=== PATIENT | male | born 1945 | race Caucasian/White ===

== ENCOUNTER → 2019-07-15 09:30 | Outpatient (CLI) | payer MEDICARE, SELFPAY ==
[2019-07-15 10:36] LABS: Add Manual Diff / Slide Review NO; Basophils Absolute Auto 0 /uL (0-100); Basophils Percent Auto 0.5 % (0-2); Eosinophils Absolute Auto 200 /uL (0-450); Eosinophils Percent Auto 3.6 % (2-4); Hematocrit 41.9 % (41-53); Hemoglobin 14.6 g/dL (13.5-17.5); Lymphocytes Absolute Auto 1300 /uL (1100-4500); Lymphocytes Percent Auto 19.4 % (25-40); Mean Corpuscular HGB Conc 34.8 % (30-36); Mean Corpuscular Hemoglobin 31.9 PG (26-34); Mean Corpuscular Volume 91.6 fL (80-100); Monocytes Absolute Auto 800 /uL (0-900); Monocytes Percent Auto 11.5 % (3-14); Neutrophils Absolute Auto 4300 /uL (1500-7000); Platelet Count 164 X10^3/uL (150-400); Red Blood Cell Count 4.58 X10^6/uL (4.5-5.9); Red Cell Distribution Width 13.3 % (11.6-14.8); White Blood Cell Count 6.6 X10^3/uL (4.5-11.0)
[2019-07-15 11:02] LABS: BUN Creatinine Ratio 22.5 (6-22); Blood Urea Nitrogen 18 mg/dL (9-20); Calcium 9.8 mg/dL (8.4-10.2); Carbon Dioxide 29 mmol/L (22-32); Chloride 100 mmol/L (98-107); Estimated Glomerular Filt Rate > 60.0 mL/min (>60); Glucose 159 mg/dL (80-110); HEMOLYSIS < 15 (0-50); Potassium 4.7 mmol/L (3.4-5.1); Sodium 141 mmol/L (137-145)
== END ==
PROVIDERS: Orthopaedic Surgery Orthopaedic Surgery of the Spine; Family Provider Family Medicine; PCP Family Medicine; Referring Provider Physical Medicine & Rehabilitation Pain Medicine; Visit Provider Physical Medicine & Rehabilitation Pain Medicine
DX: Z01.818 Encounter for other preprocedural examination (principal); Z01.812 Encounter for preprocedural laboratory examination
CPT/HCPCS: 36415; 80048; 85025; 93005

== ENCOUNTER → 2019-11-09 12:17 | Outpatient (CLI) | payer MEDICARE, SELFPAY ==
[2019-11-09 13:08] LABS: Add Manual Diff / Slide Review NO; Basophils Absolute Auto 0 /uL (0-100); Basophils Percent Auto 0.4 % (0-2); Eosinophils Absolute Auto 200 /uL (0-450); Eosinophils Percent Auto 3.3 % (2-4); Hematocrit 42.6 % (41-53); Hemoglobin 14.7 g/dL (13.5-17.5); Lymphocytes Absolute Auto 1300 /uL (1100-4500); Lymphocytes Percent Auto 19.6 % (25-40); Mean Corpuscular HGB Conc 34.6 % (30-36); Mean Corpuscular Volume 92.4 fL (80-100); Monocytes Absolute Auto 800 /uL (0-900); Monocytes Percent Auto 11.8 % (3-14); Neutrophils Absolute Auto 4400 /uL (1500-7000); Neutrophils Percent Auto 64.9 % (50-75); Platelet Count 154 X10^3/uL (150-400); Red Blood Cell Count 4.61 X10^6/uL (4.5-5.9); Red Cell Distribution Width 13.3 % (11.6-14.8); White Blood Cell Count 6.8 X10^3/uL (4.5-11.0)
[2019-11-09 13:45] LABS: Blood Urea Nitrogen 17 mg/dL (9-20); Calcium 9.6 mg/dL (8.4-10.2); Carbon Dioxide 27 mmol/L (22-32); Chloride 100 mmol/L (98-107); Estimated Glomerular Filt Rate > 60.0 mL/min (>60); Glucose 125 mg/dL (80-110); HEMOLYSIS < 15 (0-50); Potassium 4.1 mmol/L (3.4-5.1); Sodium 138 mmol/L (137-145)
== END ==
PROVIDERS: Family Provider Family Medicine; PCP Internal Medicine; Referring Provider Orthopaedic Surgery Orthopaedic Surgery of the Spine; Visit Provider Orthopaedic Surgery Orthopaedic Surgery of the Spine
DX: Z01.812 Encounter for preprocedural laboratory examination (principal)
CPT/HCPCS: 36415; 80048; 85025; 93005

== ENCOUNTER → 2019-11-19 09:31 | Outpatient (CLI) | payer MEDICARE, SELFPAY ==
[2019-11-20 10:25] LABS: COVID19 Sendout Not Detected (Not Detect)
== END ==
PROVIDERS: Family Provider Family Medicine; PCP Internal Medicine; Visit Provider Physician Assistant
DX: Z11.59 Encounter for screening for other viral diseases (principal)
CPT/HCPCS: 87635

== ENCOUNTER 2019-11-21 14:25 | Day surgery (SDC) | payer MEDICARE, SELFPAY ==
[2019-11-16 09:57] VITALS: BMI 38.2
[2019-11-21] VITALS (8 sets, daily range): BP systolic 139–168; BP diastolic 63–75; PULSE 68–86; RESP 8–20; TEMP 36–36.2; O2SAT 88–98; BMI 38.9
--- NOTE | 2019-11-21 | DI.RAD.S_ITS ---
PROCEDURE: XR LUMBAR SPINE 1V INDICATIONS: L3-4 LAMINECTOMY, L2-3 HEMILAMINECTOMY TECHNIQUE: Single lateral intraoperative spot of the lumbar spine were acquired. COMPARISON: None. FINDINGS: Localizer device projects over the mid l lumbar spine IMPRESSION: Mid lumbar spine localization. Dictated by: Christine Davis M.D. on 11/21/2019 at 17:23 Approved by: Christine Davis M.D. on 11/21/2019 at 17:24
--- NOTE | 2019-11-21 14:57 | PM.PREOP ---
Pre-operative Note COVID-19 COVID-19 status: Negative Result date/Date tested (Pos, Neg/Pending): 11/19/19 Interval Note History & Physical reviewed/Exam performed by Physician: Yes Changes to H&P: No
[2019-11-21] MEDS: LACTATED RINGERS 1,000 ML 42 ML IV (14:58)
[2019-11-21] MEDS: CEFAZOLIN 2 GM/100 ML FROZ.PIGGY IV (15:29)
--- NOTE | 2019-11-21 15:59 | SUR.OPER ---
Prone on spine table, head in foam head support, padded chest and pelvic supports, gel pad at knees, lower legs supported by pillows; nipples, genitalia and toes free of pressure, arms secured on foam padded arm boards at <90 degrees abduction. Tape over blanket at thigh secured to table.
[2019-11-21] MEDS: BUPIVACAINE 0.25% W/ EPI 30 ML VIAL INJ (16:07)
[2019-11-21] MEDS: methylPREDNISolone acet DEPO 40 MG/ML VIAL IM (16:22)
--- NOTE | 2019-11-21 16:32 | PM.OP.1 ---
Operative Date/Time/Diagnoses Date of procedure: 11/21/19 Time of procedure: 15:33 Pre-op diagnosis: 1. L2-3, L3-4 spinal stenosis 2. Lumbar epidural lipomatosis Post-op diagnosis: same Procedure & Clinicians Procedure: 1. L3-4 laminectomy with bilateral partial facectomies 2. L2-3 right hemilaminectomy 3. Utilization of microsurgical technique and operating microscope Same procedure as scheduled: Yes
--- NOTE | 2019-11-21 16:37 | P.OP_ITS ---
Procedure & Clinicians Procedure: 1. L2-3 laminectomy with bilateral partial facectomies 2. L3-4 right hemilaminectomy 3. Utitilization of microsurgical technique and operating microscope Same procedure as scheduled: Yes Indications: Patient has been having chronic back pain and worsening lumbar radiculopathy. Patient failed multiple conservative management with worsening pain weakness and numbness in her lower extremity. Patient has been having difficulty performing activity of daily living. After discussing risks benefits of treatment options, patient elected proceed with surgery. Surgeon: Sapna Shrestha [employer] Sales Associate: Kayla Stephenson Click Yes if Unassisted: No Anesthesia Type: General Operative Notes Closure Type: primary Specimen(s): none sent Estimated Blood Loss (mL): 10 Blood products transfused: none Procedure in detail: Patient was seen in the preoperative area. Risks and benefits of the surgery was discussed with the patient. Informed consent was obtained from the patient and placed in the chart. Surgical site was marked. Patient was taken to the operative room. General anesthesia was administered. Prophylactic antibiotic was given to the patient less than 30 min before the incision was made. Patient was placed into a prone position on the Braulio table. Patient's back was then prepped and draped in the sterile fashion. Time- out was performed at this time. Using AP and lateral C-arm imaging the interval between L2 and L4 was identified and marked on patient's back. A 1 inch incision 1 in from midline was made on the right side. The fascia was incised in line with skin incision. Globus MARS retractors was placed inside the incision and docked onto the L3 lamina. Using microsurgical technique and operating microscope, a L3-4 laminectomy was performed using a Kerrison rongeur. Liagamentum flavum was resected at the site of the laminotomy. Either side of the dura was exposed. Bilateral partial facetcomies was performed to further decompress the lateral recess. After the laminectomy was completed, the area medial lateral superior and inferior to the area of the laminectomy was inspected and explored using a micro curette. No other impinging structure was identified. The mars retractor was targeted at this time over the L2 lamina. A right-sided hemilaminectomy was performed using a Kerrison rongeur and a power drill. There was significant amount of epidermal it lipomatosis at both the L2-3 and L3-4 level. The lipomatosis was removed using a combination of Kerrison rongeur and pituitary to further decompress the epidural space. Both L2-3 and L3-4 level was fully decompressed after the laminectomy and hemilaminectomy was completed. The wound was then irrigated with sterile normal saline. 40 mg Depo-Medrol was placed into the epidural space. The deep fascia was closed with 1-0 Vicryl. The subcutaneous tissue was closed with 2-0 Vicryl. The skin was closed with skin jose. Patient tolerated the procedure well. There were no complications. Patient was transferred recovery room in stable condition. Complications: none Post-operative Condition: stable Disposition: same day surgery Plan for aftercare: Discharge to home
--- NOTE | 2019-11-21 17:22 | SUR.PHASEI ---
Report given to Vanda
== END 2019-11-21 17:55 | disposition home or self-care (01) ==
PROVIDERS: Family Provider Family Medicine; PCP Internal Medicine; Referring Provider Orthopaedic Surgery Orthopaedic Surgery of the Spine; Visit Provider Orthopaedic Surgery Orthopaedic Surgery of the Spine
PROC: (CPT 63047; principal; 2019-11-21 15:45)
DX: M48.061 Spinal stenosis, lumbar region without neurogenic claudication (principal); D17.79 Benign lipomatous neoplasm of other sites; M54.16 Radiculopathy, lumbar region; E66.9 Obesity, unspecified; E11.9 Type 2 diabetes mellitus without complications; Z79.4 Long term (current) use of insulin
CPT/HCPCS: 63047; 63030; 72020; 76000; J0330; J0690; J1030; J2405; J2704; J3010

== ENCOUNTER → 2020-11-05 13:09 | Outpatient (CLI) | payer MEDICARE, SELFPAY ==
[2020-11-05 14:49] LABS: COVID19 -Nasal RAPID Negative (Negative)
[2020-11-05 14:58] LABS: Add Manual Diff / Slide Review NO; Basophils Absolute Auto 0 /uL (0-100); Basophils Percent Auto 0.4 % (0-2); Eosinophils Absolute Auto 200 /uL (0-450); Eosinophils Percent Auto 2.7 % (2-4); Hematocrit 41.5 % (41-53); Hemoglobin 13.9 g/dL (13.5-17.5); Lymphocytes Absolute Auto 1600 /uL (1100-4500); Lymphocytes Percent Auto 20.5 % (25-40); Mean Corpuscular HGB Conc 33.6 % (30-36); Mean Corpuscular Hemoglobin 30.7 PG (26-34); Mean Corpuscular Volume 91.6 fL (80-100); Monocytes Absolute Auto 800 /uL (0-900); Monocytes Percent Auto 10.5 % (3-14); Neutrophils Absolute Auto 5300 /uL (1500-7000); Neutrophils Percent Auto 65.9 % (50-75); Platelet Count 182 X10^3/uL (150-400); Red Blood Cell Count 4.53 X10^6/uL (4.5-5.9); Red Cell Distribution Width 13.2 % (11.6-14.8)
[2020-11-05 15:26] LABS: Alanine Aminotransferase 49 IU/L (<50); Albumin 4.4 g/dL (3.5-5.0); Albumin Globulin Ratio 1.3 (1.0-2.8); Alkaline Phosphatase 77 U/L (38-126); Aspartate Aminotransferase 38 IU/L (17-59); BUN Creatinine Ratio 23.1 (6-22); Bilirubin Total 1.5 mg/dL (0.2-1.3); Blood Urea Nitrogen 18 mg/dL (9-20); Calcium 9.7 mg/dL (8.4-10.2); Carbon Dioxide 28 mmol/L (22-32); Chloride 101 mmol/L (98-107); Cholesterol 102 mg/dL (140-199); Estimated Glomerular Filt Rate > 60.0 mL/min (>60); Globulin 3.3 g/dL (1.7-4.1); Glucose 99 mg/dL (80-110); HDL Cholesterol 37 mg/dL (40-60); HEMOLYSIS < 15 (0-50); LDL Cholesterol Calculated 39 mg/dL (<100); Potassium 3.8 mmol/L (3.4-5.1); Sodium 141 mmol/L (137-145); Total Protein 7.7 g/dL (6.3-8.2); Triglycerides 131 mg/dL (35-150)
[2020-11-05 16:37] LABS: Creatinine Urine Random 28.1 mg/dL
[2020-11-05 17:01] LABS: Microalbumin Urine Random < 0.6 mg/dL (0-1.6)
== END ==
PROVIDERS: Family Provider Family Medicine; PCP Internal Medicine; Referring Provider Internal Medicine; Visit Provider Internal Medicine
DX: E11.9 Type 2 diabetes mellitus without complications (principal); E78.2 Mixed hyperlipidemia; I10 Essential (primary) hypertension; K21.9 Gastro-esophageal reflux disease without esophagitis; N40.1 Benign prostatic hyperplasia with lower urinary tract symptoms
CPT/HCPCS: 36415; 80053; 80061; 82043; 82570; 83036; 85025; 87635; C9803

== ENCOUNTER → 2020-11-05 14:22 | Outpatient (CLI) | payer MEDICARE, SELFPAY ==
--- NOTE | 2020-11-09 13:12 | PM.PFT.1 ---
Pulmonary Function Test Referral & Results Date Patient Seen: 11/05/20 Requesting provider: Jack Grant Indication: Shortness of breath Results: The spirometry demonstrates an FVC of 4.48 L which is 114% of predicted. The FEV1 was measured at 3.61 L which is 128% of predicted. The FEV1/FVC ratio was 81 which is 110% of predicted. Lung volumes show an SVC of 4.57 L which is 100 a % of predicted. The diffusing capacity was measured at 25.44 which is 85% of predicted. No hemoglobin value was provided, so no correction for potential anemia could be made, if appropriate. The maximum voluntary ventilation was normal Interpretation: This study demonstrates normal pulmonary function. Diffusing capacity maybe slightly diminished unless patient is anemic as above. This might well also be normal Clinical correlation suggested
== END ==
PROVIDERS: Family Provider Family Medicine; PCP Internal Medicine; Referring Provider Internal Medicine; Visit Provider Internal Medicine
DX: R06.02 Shortness of breath (principal); Z87.891 Personal history of nicotine dependence; Z20.822 Contact with and (suspected) exposure to COVID-19; E11.9 Type 2 diabetes mellitus without complications; E78.2 Mixed hyperlipidemia; K21.9 Gastro-esophageal reflux disease without esophagitis; N40.1 Benign prostatic hyperplasia with lower urinary tract symptoms
CPT/HCPCS: 36415; 80053; 80061; 82043; 82570; 83036; 85025; 87635; 94010; 94726; 94729; C9803

== ENCOUNTER 2021-04-03 18:08 | Observation (INO) | payer MEDICARE, SELFPAY ==
[2021-04-03] VITALS (11 sets, daily range): BP systolic 126–169; BP diastolic 61–77; PULSE 80–90; RESP 18; TEMP 36.2; O2SAT 93–97; BMI 38.9
--- NOTE | 2021-04-03 18:41 | DI.CT.S_ITS ---
PROCEDURE: CT HEAD/BRAIN WO CON INDICATIONS: change in speech, now resolved. TECHNIQUE: Noncontrast 4.5 mm thick angled axial sections acquired from the foramen magnum to the vertex, with coronal and sagittal reformats. For radiation dose reduction, the following was used: automated exposure control, adjustment of mA and/or kV according to patient size. COMPARISON: None. FINDINGS: Image quality: Excellent. CSF spaces: Basal cisterns are patent. No extra-axial fluid collections. The ventricles are symmetric in size and shape. Brain: No intracranial bleeds or masses. There is cerebral volume loss for age, with resultant ventricular and sulcal prominence. There are periventricular and deep white matter chronic small vessel ischemic changes. There is intracranial internal carotid artery atherosclerosis. Skull and face: Calvarium and visualized facial bones appear intact, without suspicious lesions. Sinuses: Visualized sinuses and mastoids are clear. IMPRESSION: Atrophy and chronic ischemic change without intracranial hemorrhage or mass effect. Approved by: Niles Real M.D. on 04/03/2021 at 18:17
--- NOTE | 2021-04-03 18:53 | ED.FEVER ---
HPI - Fever General Chief Complaint: Fever Stated Complaint: fever Time Seen by Provider: 04/03/21 18:36 Source: family Mode of arrival: Wheelchair Limitations: no limitations History of Present Illness HPI Narrative: 75-year-old male former smoker with history of hypertension, hyperlipidemia and diabetes presents with his and the chief complaint of some difficulty with word finding this afternoon. It lasted 1-2 hours and resolved prior to his arrival. Additionally he has felt a bit weak from much of the day and this morning at about 1:00 a.m. he woke up to urinate and his legs gave out from underneath him, he was on the ground and too weak to get up for nearly an hour before family can get him back in the bed. He denies any obvious extremity weakness, confusion, trouble with speech. He has had mild subjective fevers at home off and on for the past few days since his COVID booster. He denies any chest pain or shortness of breath. He denies nausea, vomiting or diarrhea. He denies any recent trauma. He has no abdominal pain or urinary complaints Related Data Home Medications Medication Instructions Recorded Confirmed alfuzosin 10 mg tablet,extended 10 mg PO DAILY 11/16/19 04/03/21 release 24 hr aspirin 81 mg tablet,delayed 81 mg PO DAILY 11/16/19 04/03/21 release atorvastatin 20 mg tablet 20 mg PO BEDTIME 11/16/19 04/03/21 glimepiride 1 mg tablet 1 mg PO QAM 11/16/19 04/03/21 irbesartan 300 mg tablet 300 mg PO QAM 11/16/19 04/03/21 metoprolol succinate 50 mg 50 mg PO QAM 11/16/19 04/03/21 tablet,extended release 24 hr naproxen 500 mg tablet 1,000 mg PO DAILY PRN 11/16/19 04/03/21 omeprazole 40 mg capsule,delayed 40 mg PO QAM 11/16/19 04/03/21 release vit C 250 mg-vit E 90 mg-zinc 40 1 tab PO BID 11/16/19 04/03/21 mg-copper 1 ms-gvpsdi-vkjgfe capsule (PreserVision AREDS-2) cholecalciferol (vitamin D3) 25 25 mcg PO DAILY 11/21/19 04/03/21 mcg (1,000 unit) chewable tablet (Vitamin D3) glucosamine sulfate 2KCl 500 1 tab PO BID 11/21/19 04/03/21 mg-msm 166.6 mg-chondroitin 400 mg tablet omega 4-htt-zgu-fish oil 1,000 mg 1 cap PO BID 11/21/19 04/03/21 (120 mg-180 mg) capsule (Fish Oil) vitamin B12 500 mcg-folic acid 400 1 tab PO DAILY 11/21/19 04/03/21 mcg tablet hydrochlorothiazide 12.5 mg tablet 12.5 mg PO DAILY tab 10/23/20 04/03/21 metformin 1,000 mg tablet 1,000 mg PO BID tab 10/23/20 04/03/21 tolterodine 4 mg capsule,extended 4 mg PO DAILY cap 10/23/20 04/03/21 release 24 hr Allergies Allergy/AdvReac Type Severity Reaction Status Date / Time kiwi [KIWI] Allergy Mild RASH Verified 02/07/21 11:12 strawberry [STRAWBERRY] Allergy Mild RASH Verified 02/07/21 11:12 travis AdvReac Intermediate Lump in Verified 02/07/21 11:12 my throat, sneezing Review of Systems Review of Systems Narrative: GENERAL: See HP HEENT: Denies sinus pain, ear pain, sore throat, difficulty swallowing, dizziness. RESPIRATORY: Denies dyspnea, cough, wheezing, hemoptysis, sputum. CARDIOVASCULAR: Denies chest pain, palpitations, orthopnea, edema, GASTROINTESTINAL: Denies nausea, vomiting, abdominal pain, diarrhea, constipation, melena. : Denies dysuria, frequency, incontinence, hematuria, urinary retention. MUSCULOSKELETAL: denies weakness, joint pain, or bony pain SKIN: Denies rash, skin lesions, or other NEUROLOGIC: See HP PSYCHIATRIC: No concerning psychosocial issues. 12 point review of systems is negative except for those stated above Patient History Medical History Arthritis Benign non-nodular prostatic hyperplasia with lower urinary tract symptoms (05/04/15) Bladder cancer (2007) Erectile dysfunction (05/04/15) Essential hypertension (05/04/15) GERD (gastroesophageal reflux disease) History of malignant neoplasm of bladder (05/04/15) Mixed hyperlipidemia (05/04/15) Post-traumatic osteoarthritis of left ankle (05/04/15) RBBB (right bundle branch block) Sciatica Type 2 diabetes mellitus without complication (05/04/15) Surgical History History of arthroplasty of left shoulder (~2017) History of carpal tunnel repair History of cataract removal with insertion of prosthetic lens History of knee replacement Status post rotator cuff repair Family History Father Diabetes mellitus Hypertension Heart disease Mother Hypertension Social History household members: spouse Smoking Status: Former smoker alcohol intake: current Smoking Status: Former smoker alcohol intake frequency: 3 or more drinks per day Substance Use Type: does not use Exam Narrative Exam Narrative: GENERAL: [75 year old patient appears stated age. Well-developed patient, in mild distress. HEAD: Atraumatic. Normocephalic. EYES: Pupils equal round and reactive. Extraocular motions intact. No scleral icterus. No injection or drainage. ENT: Nose without bleeding, purulent drainage. Throat without erythema, tonsillar hypertrophy or exudate. Airway patent. NECK: Trachea midline. Non tender CARDIOVASCULAR: Regular rate and rhythm without murmurs, gallops, or rubs. RESPIRATORY: Clear to auscultation. Breath sounds equal bilaterally. No wheezes, rales, or rhonchi. GASTROINTESTINAL: Abdomen soft, non-tender, nondistended. EXTREMITIES: No edema or joint tenderness. BACK: Nontender without deformity or crepitance. No flank tenderness. NEURO: AOx3. SKIN: No rash or erythema of visible areas Initial Vital Signs Initial Vital Signs: Vital Signs Temperature 97.1 F L 04/03/21 18:08 Pulse Rate 90 04/03/21 18:08 Respiratory Rate 18 04/03/21 18:08 Blood Pressure 126/61 04/03/21 18:08 Pulse Oximetry 93 04/03/21 18:08 Scores NIH Stroke Scale Level of Conciousness: Alert, keenly responsive Ask month/age: Answers both questions correctly. Open/close eyes, close hand: Performs both tasks correctly Best gaze horizontal: Normal Visual najera: No visual loss Facial palsy: Normal symetrical movement Left arm drift: No drift for full 10 sec Right arm drift: No drift for full 10 sec Left leg drift: No drift for full 5 sec Right leg drift: No drift for full 5 sec Limb ataxia: Present in two limbs Sensory on face/arms/legs: Normal, no sensory loss Best language: No aphasia, normal Dysarthria: Normal Extinction or inattention: No abnormality Total NIH Stroke scale score: 2 Course Orders Ordered: ED Orders 04/03/21 18:41 CT head/brain wo con Stat 04/03/21 18:47 Complete Blood Count AUTO DIFF Stat Comprehensive Metabolic Panel Stat Lipase Stat Partial Thromboplastin Time Stat Prothrombin Time INR Stat 04/03/21 20:00 Ictotest Urine Stat 04/03/21 20:08 COVID19 - ADMIT (HUMAN DEVELOPMENT PROFESSOR swab/PCR) Stat Discontinued Medications Aspirin (Aspirin 325 Mg Tablet) 325 mg PO NOW ONE Stop: 04/03/21 20:06 Last Admin: 04/03/21 20:29 Dose: Not Given Documented by: JOHNNY Aspirin (Aspirin 81 Mg Chew Tab) 324 mg PO NOW ONE Stop: 04/03/21 20:30 Last Admin: 04/03/21 20:29 Dose: 324 mg Documented by: JOHNNY Vital Signs Vital signs: Vital Signs - 8 hr 04/03/21 18:08 04/03/21 20:02 04/03/21 20:03 Temperature 97.1 F L Pulse Rate 90 86 Respiratory Rate 18 Blood Pressure 126/61 158/77 H Pulse Oximetry 93 97 97 04/03/21 20:30 04/03/21 21:00 Temperature Pulse Rate 82 80 Respiratory Rate Blood Pressure 158/77 H Pulse Oximetry 96 96 MDM - Fever Lab Data Result diagrams: 04/03/21 18:47 04/03/21 18:47 Labs: Lab Results 04/03/21 04/03/21 04/03/21 Range/Units 18:47 18:47 18:47 WBC 5.3 (4.5-11.0) X10^3/uL RBC 4.45 L (4.5-5.9) X10^6/uL Hgb 13.5 (13.5-17.5) g/dL Hct 39.5 L (41-53) % MCV 88.7 (80-100) fL MCH 30.2 (26-34) PG MCHC 34.1 (30-36) % RDW 13.2 (11.6-14.8) % Plt Count 142 L (150-400) X10^3/uL Neut % (Auto) 79.1 H (50-75) % Lymph % (Auto) 7.4 L (25-40) % Jessamine % (Auto) 9.2 (3-14) % Eos % (Auto) 4.2 H (2-4) % Baso % (Auto) 0.1 (0-2) % Neut # (Auto) 4200 (5687-6082) /uL Lymph # (Auto) 400 L (3100-5663) /uL Jessamine # (Auto) 500 (0-900) /uL Eos # (Auto) 200 (0-450) /uL Baso # (Auto) 0 (0-100) /uL PT 13.4 H (10.1-12.7) SECONDS INR 1.2 (0.9-1.3) APTT 35 (26.4-36.2) SECONDS Sodium 134 L (137-145) mmol/L Potassium 3.5 (3.4-5.1) mmol/L Chloride 98 (98-107) mmol/L Carbon Dioxide 25 (22-32) mmol/L BUN 18 (9-20) mg/dL Creatinine 0.80 (0.66-1.25) mg/dL Estimated GFR > 60.0 (>60) mL/min BUN/Creatinine Ratio 22.5 H (6-22) Glucose 154 H (80-110) mg/dL Calcium 9.2 (8.4-10.2) mg/dL Total Bilirubin 2.3 H (0.2-1.3) mg/dL AST 38 (17-59) IU/L ALT 43 (<50) IU/L Alkaline Phosphatase 62 (38-126) U/L Total Protein 7.7 (6.3-8.2) g/dL Albumin 4.4 (3.5-5.0) g/dL Globulin 3.3 (1.7-4.1) g/dL Albumin/Globulin Ratio 1.3 (1.0-2.8) Lipase 130 (23-300) U/L Ur Bilirubin Confirm (Negative) SARS-CoV-2 (PCR) (Negative) 04/03/21 04/03/21 Range/Units 20:00 20:08 WBC (4.5-11.0) X10^3/uL RBC (4.5-5.9) X10^6/uL Hgb (13.5-17.5) g/dL Hct (41-53) % MCV (80-100) fL MCH (26-34) PG MCHC (30-36) % RDW (11.6-14.8) % Plt Count (150-400) X10^3/uL Neut % (Auto) (50-75) % Lymph % (Auto) (25-40) % Jessamine % (Auto) (3-14) % Eos % (Auto) (2-4) % Baso % (Auto) (0-2) % Neut # (Auto) (8561-2118) /uL Lymph # (Auto) (4574-8299) /uL Jessamine # (Auto) (0-900) /uL Eos # (Auto) (0-450) /uL Baso # (Auto) (0-100) /uL PT (10.1-12.7) SECONDS INR (0.9-1.3) APTT (26.4-36.2) SECONDS Sodium (137-145) mmol/L Potassium (3.4-5.1) mmol/L Chloride (98-107) mmol/L Carbon Dioxide (22-32) mmol/L BUN (9-20) mg/dL Creatinine (0.66-1.25) mg/dL Estimated GFR (>60) mL/min BUN/Creatinine Ratio (6-22) Glucose (80-110) mg/dL Calcium (8.4-10.2) mg/dL Total Bilirubin (0.2-1.3) mg/dL AST (17-59) IU/L ALT (<50) IU/L Alkaline Phosphatase (38-126) U/L Total Protein (6.3-8.2) g/dL Albumin (3.5-5.0) g/dL Globulin (1.7-4.1) g/dL Albumin/Globulin Ratio (1.0-2.8) Lipase (23-300) U/L Ur Bilirubin Confirm Negative (Negative) SARS-CoV-2 (PCR) Negative (Negative) Point of Care Testing Glucose POC 160 Urine Dip Bedside Urine Glucose Negative Bedside Urine Bilirubin + 1 Bedside Urine Ketone +/- 5 Urine Specific [place] 1.020 Bedside Urine Occult Blood - Negative Bedside Urine pH 6.0 Bedside Urine Protein - Negative Bedside Urine Urobilinogen - Negative Bedside Urine Nitrite - Negative Bedside Urine Leukocytes - Negative Esterase Imaging Data CT scan - head: Radiologist's Impression: Chart Viewer Diagnostics Subcategory All Activity ??:?? All Time ??:?? All Subcategories Filter Laboratory Imaging Microbiology Pathology Blood Bank Tests Cardiovascular Other Specialty DATE TYPE STATUS REF RANGE/AUTHOR Hx Today 18:[address] Signed Niles Real 11/21/19 00:00 Lumbar Spine X-Ray Signed Christine Davis John J 75, M?1945 MRN#? [id number] ADM [facility],?[facility]??R05?? 180.34cm 126.552kg BMI: 38.9kg/m? Acc#? [id number] Full Code Special Indicators No Data to Display Home Meds Confirmed Prescription Monitoring Program MEDICATIONS (INSTRUCTIONS) LAST TAKEN Active alfuzosin 10 mgPODAILY Unknown aspirin 81 mgPODAILY Unknown atorvastatin 20 mgPOBEDTIME Unknown cholecalciferol (vitamin D3) [Vitamin D3] 25 mcgPODAILY Unknown glimepiride 1 mgPOQAM Unknown glucosamine [id number] 1 tabPOBID Unknown hydrochlorothiazide 12.5 mg tablet 12.5 mgPODAILY?tab Unknown irbesartan 300 mgPOQAM Unknown metformin 1,000 mg tablet 1,000 mgPOBID?tab Unknown metoprolol succinate 50 mgPOQAM Unknown naproxen 1,000 mgPODAILYPRN Unknown omega 6-vjp-lva-fish oil [Fish Oil] 1 capPOBID Unknown omeprazole 40 mgPOQAM Unknown PreserVision AREDS-2 1 tabPOBID Unknown tolterodine 4 mg capsule,extended release 24 hr 4 mgPODAILY?cap Unknown vitamin H77-ipdeg acid 1 tabPODAILY Unknown Allergies kiwi (KIWI) RASH strawberry (STRAWBERRY) RASH travis Lump in my throat, sneezing Problems ? ONSET Essential hypertension 05/04/15 Mixed hyperlipidemia 05/04/15 Type 2 diabetes mellitus without complication 05/04/15 GERD (gastroesophageal reflux disease) Benign non-nodular prostatic hyperplasia with lower urinary tract symptoms 05/04/15 Post-traumatic osteoarthritis of left ankle 05/04/15 RBBB (right bundle branch block) History of malignant neoplasm of bladder 05/04/15 Erectile dysfunction 05/04/15 Vital Signs Today 21:00 Pulse 80? O2 Sat 96? Diagnostics Reports Jack Jose??75??M??1945 ? Allergy/Adv: kiwi, strawberry, travis Close Head CT (Signed) Niles Real - 04/03/21 Lumbar Spine X-Ray (Signed) [facility] - 11/21/19 [place] [address] CT Scan Report Signed Patient: Jack Jose MR#: [id number] : 1945 Acct:[id number] Age/Sex: 75 / M Date of Service: 04/03/21 Loc: ED Accession Number: [id number] ?? Procedure: CT head/brain wo con Ordering Provider: Juan Greer D.O. PROCEDURE:? CT HEAD/BRAIN WO CON ? INDICATIONS:? change in speech, now resolved. ? TECHNIQUE:? Noncontrast 4.5 mm thick angled axial sections acquired from the foramen magnum to the vertex, with coronal and sagittal reformats.? For radiation dose reduction, the following was used:? automated exposure control, adjustment of mA and/or kV according to patient size.? ? COMPARISON:? None. ? FINDINGS:? Image quality:? Excellent.? ? CSF spaces:? Basal cisterns are patent.? No extra-axial fluid collections.? The ventricles are symmetric in size and shape.? ? Brain:? No intracranial bleeds or masses.? There is cerebral volume loss for age, with resultant ventricular and sulcal prominence.? There are periventricular and deep white matter chronic small vessel ischemic changes.? There is intracranial internal carotid artery atherosclerosis.? ? Skull and face:? Calvarium and visualized facial bones appear intact, without suspicious lesions.? ? Sinuses:? Visualized sinuses and mastoids are clear.? ? IMPRESSION:? Atrophy and chronic ischemic change without intracranial hemorrhage or mass effect. ? ? ? Approved by: Niles Real M.D. on 04/03/2021 at 18:17? MDM Narrative Medical decision making narrative: 75-year-old former smoker with history of hypertension, hyperlipidemia and diabetes presents with an episode of speech trouble that has resolved. He has not activated as a code stroke as he is outside of any window for tPA and shows no elevated LAMS. He does not have a measurable weakness but does have trouble with [id number] and heel to reyes both on the left side. He did not realize that these were giving him trouble. Patient has a NIH stroke scale of 2 and requires hospitalization for further evaluation of his likely stroke versus TIA versus other Discharge Plan Departure Patient Disposition: Admitted as Observation Clinical Impression: Stroke Admit Date/Time: 04/03/21 21:35 Admit Provider: Fernando Nieves
[2021-04-03 19:01] LABS: INR 1.2 (0.9-1.3); Prothrombin Time 13.4 SECONDS (10.1-12.7)
[2021-04-03 19:04] LABS: PTT Partial Thromboplastin Tim 35 SECONDS (26.4-36.2)
[2021-04-03 19:07] LABS: Add Manual Diff / Slide Review NO; Basophils Absolute Auto 0 /uL (0-100); Basophils Percent Auto 0.1 % (0-2); Eosinophils Absolute Auto 200 /uL (0-450); Eosinophils Percent Auto 4.2 % (2-4); Hematocrit 39.5 % (41-53); Hemoglobin 13.5 g/dL (13.5-17.5); Lymphocytes Absolute Auto 400 /uL (1100-4500); Lymphocytes Percent Auto 7.4 % (25-40); Mean Corpuscular HGB Conc 34.1 % (30-36); Mean Corpuscular Hemoglobin 30.2 PG (26-34); Mean Corpuscular Volume 88.7 fL (80-100); Monocytes Absolute Auto 500 /uL (0-900); Monocytes Percent Auto 9.2 % (3-14); Neutrophils Absolute Auto 4200 /uL (1500-7000); Neutrophils Percent Auto 79.1 % (50-75); Platelet Count 142 X10^3/uL (150-400); Red Blood Cell Count 4.45 X10^6/uL (4.5-5.9); Red Cell Distribution Width 13.2 % (11.6-14.8); White Blood Cell Count 5.3 X10^3/uL (4.5-11.0)
[2021-04-03 19:08] LABS: Alanine Aminotransferase 43 IU/L (<50); Albumin 4.4 g/dL (3.5-5.0); Albumin Globulin Ratio 1.3 (1.0-2.8); Alkaline Phosphatase 62 U/L (38-126); Aspartate Aminotransferase 38 IU/L (17-59); BUN Creatinine Ratio 22.5 (6-22); Bilirubin Total 2.3 mg/dL (0.2-1.3); Blood Urea Nitrogen 18 mg/dL (9-20); Calcium 9.2 mg/dL (8.4-10.2); Carbon Dioxide 25 mmol/L (22-32); Chloride 98 mmol/L (98-107); Estimated Glomerular Filt Rate > 60.0 mL/min (>60); Globulin 3.3 g/dL (1.7-4.1); Glucose 154 mg/dL (80-110); HEMOLYSIS < 15 (0-50); Lipase 130 U/L (23-300); Potassium 3.5 mmol/L (3.4-5.1); Sodium 134 mmol/L (137-145); Total Protein 7.7 g/dL (6.3-8.2)
[2021-04-03] MEDS: ASPIRIN 81 MG CHEW TAB 324 MG PO (20:29)
[2021-04-03 20:30] LABS: Ictotest Urine Negative (Negative)
--- NOTE | 2021-04-03 21:18 | PC.NURSE ---
Pt states this morning at 1am he slid out of bed and his legs felt weak and didnt work The only new change was pt rec'd his booster Pfizer vaccine Thursday. Later on today around 1500, called to check in on patient and pt was having word slurring and searching with fever. pt was given tylenol by his and she states that his word searching resolved. Upon NIH assessment-- Pt scored a 0 however had more difficulty performing assessment with his left side compared to right. Pt states he d/c'd taking daily aspirin a few days ago as [facility]. AAOx 3. as bedside.
[2021-04-03 21:48] LABS: COVID19 - ADMIT (NP swab/PCR) Negative (Negative)
--- NOTE | 2021-04-03 22:36 | DI.MRI.S_ITS ---
PROCEDURE: MR STROKE Pre- and post-contrast brain MRI, non-contrast brain MR angiogram, pre- and postcontrast neck MR angiogram INDICATIONS: weekness speech difficulty and ataxia TECHNIQUE: Brain: Noncontrast axial T1 spin echo, axial T2 fast spin echo, sagittal and axial FLAIR, coronal T2 fast spin echo, axial gradient echo, axial diffusion and ADC through the brain. After the administration of contrast, axial 3D VIBE of the cranial vasculature and brain. Brain MRA: Non-contrast 3-D time of flight MR angiogram, with multiple apjpejz-zvwrxocif-staiyqnicn (MIP) reformats performed. Neck MRA: Axial and sagittal TruFISP through the neck. Coronal dynamic MR angiogram during administration of contrast in the arterial and venous phases, with 3-dimenstional kfgzxvl-jgyogxljd-gcfdmfvlcr (MIP) reformats constructed from subtraction images. COMPARISON: [facility], CT, CT HEAD/BRAIN WO CON, 04/03/2021, 18:34. FINDINGS: Image quality: Excellent. BRAIN: CSF spaces: Ventricles are mildly dilated but symmetrical in size and shape. Basal cisterns are patent. No extra-axial fluid collections. Brain: There is moderate cerebral volume loss. No intracranial bleeds or mass effects. Ibrahim-white matter interface is normal. Diffusion weighted images show no acute ischemic insults. Brainstem appears normal. Normal intravascular flow voids are present. No abnormal intracranial enhancement. Skull and face: Calvarial marrow signal is normal. Orbits appear normal. Sinuses: Mild frontal, ethmoid, sphenoid and maxillary sinus mucosal thickening bilaterally. The mastoids are clear. BRAIN MR ANGIOGRAM: Anterior circulation: Intracranial internal carotid arteries are normal in size and enhancement. The flow within the paired anterior cerebral arteries is normal and symmetric. The flow within the middle cerebral arteries is normal and symmetric. The anterior communicating artery is seen. No stenoses, occlusions, or aneurysms. Posterior circulation: The visualized portions of the vertebral arteries demonstrate normal caliber, and join to form a normal appearing basilar artery. The flow within the posterior cerebral arteries is normal and symmetric. No stenoses, occlusions, or aneurysms. NECK MR ANGIOGRAM: Carotids: Great vessels demonstrate a conventional anatomy as they arise from the aortic arch. The origins of the common carotid arteries appear patent. The calibers and courses of both common carotid arteries are normal. The bifurcation regions appear normal bilaterally. The internal carotid arteries demonstrate normal course and caliber. Posterior circulation: The origin of the right vertebral artery is not well seen. The origins of the left vertebral artery appear patent. More superior portions of both vertebral arteries demonstrate normal course and caliber, and join to form a normal appearing basilar artery. Miscellaneous: Subclavian arteries appear patent. Pre-contrast images through the neck show no soft tissue abnormalities. There is degenerative disc and facet disease in cervical spine. IMPRESSION: BRAIN MRI: 1. No acute intracranial abnormalities. 2. Moderate cerebral volume loss. 3. Mild paranasal sinus disease. BRAIN MR ANGIOGRAM: 1. No hemodynamic significant stenosis in anterior or posterior circulations. NECK MR ANGIOGRAM: 1. The origin of the right vertebral artery is not well seen. Otherwise, there is no hemodynamic significant stenosis in cervical carotid arteries or vertebral arteries bilaterally. Dictated by: Santana Beck M.D. on 04/04/2021 at 10:12 Approved by: Santana Beck M.D. on 04/04/2021 at 10:37
--- NOTE | 2021-04-03 23:55 | PC.NURSE ---
Pt placed on inpatient bed. appears more comfortable. VS q2 hr. call mercedes and urinal w/ in reach. Lights out for comfort.
[2021-04-04] VITALS (13 sets, daily range): BP systolic 66–165; BP diastolic 45–96; PULSE 77–92; RESP 16–20; TEMP 36.6–37.4; O2SAT 90–98; BMI 38.9
--- NOTE | 2021-04-04 07:38 | P.HP_ITS ---
History of Present Illness History of Present Illness Date Patient Seen: 04/04/21 Time Patient Seen: 07:38 Chief complaint: fever Narrative: 75-year-old male admitted with possible stroke or TIA Morning of admission he got up and tried to go to the bathroom and felt like his legs were too weak to support him. He has also had some trouble with speech. He received his COVID-19 vaccine booster and has had low-grade fevers for couple of days after that but this seems something new. He has also had difficulty with his gait for quite some time is actually going to physical therapy as an outpatient actively has had some falls and or near misses. However again this seems to be more dramatic and or something new. Upon arrival in the ED he had some resolution of symptoms but was found to have some ojdage-ay-sung abnormalities. NIH stroke scale was 2. He was admitted for further evaluation. Head CT and other evaluation in the emergency department unremarkable Patient does have stroke risk factors including hyperlipidemia hypertension and diabetes. White blood cell count was normal and no obvious evidence of infection (concern given the fevers although likely related to vaccine) Patient History Medical History Arthritis Benign non-nodular prostatic hyperplasia with lower urinary tract symptoms (05/04/15) Bladder cancer (2007) Erectile dysfunction (05/04/15) Essential hypertension (05/04/15) GERD (gastroesophageal reflux disease) History of malignant neoplasm of bladder (05/04/15) Mixed hyperlipidemia (05/04/15) Post-traumatic osteoarthritis of left ankle (05/04/15) RBBB (right bundle branch block) Sciatica Type 2 diabetes mellitus without complication (05/04/15) Surgical History History of arthroplasty of left shoulder (~2017) History of carpal tunnel repair History of cataract removal with insertion of prosthetic lens History of knee replacement Status post rotator cuff repair Family & Social History Family History Father Diabetes mellitus Hypertension Heart disease Mother Hypertension Social History: household members spouse Safety & Behavioral: Feels Safe in Current Yes Environment Been Physically Hurt or No Threatened By a Person Tobacco & Substance use: Tobacco type cigarettes Smoking Status Former smoker alcohol intake current alcohol intake frequency 3 or more drinks per day Substance Use Type does not use Meds Home Medications and Allergies Home Medications Medication Instructions Recorded Confirmed Type alfuzosin 10 mg tablet,extended 10 mg PO DAILY 11/16/19 04/03/21 History release 24 hr aspirin 81 mg tablet,delayed 81 mg PO DAILY 11/16/19 04/03/21 History release atorvastatin 20 mg tablet 20 mg PO BEDTIME 11/16/19 04/03/21 History glimepiride 1 mg tablet 1 mg PO QAM 11/16/19 04/03/21 History irbesartan 300 mg tablet 300 mg PO QAM 11/16/19 04/03/21 History metoprolol succinate 50 mg 50 mg PO QAM 11/16/19 04/03/21 History tablet,extended release 24 hr naproxen 500 mg tablet 1,000 mg PO DAILY PRN 11/16/19 04/03/21 History omeprazole 40 mg capsule,delayed 40 mg PO QAM 11/16/19 04/03/21 History release vit C 250 mg-vit E 90 mg-zinc 40 1 tab PO BID 11/16/19 04/03/21 History mg-copper 1 bd-srituv-fdirhj capsule (PreserVision AREDS-2) cholecalciferol (vitamin D3) 25 25 mcg PO DAILY 11/21/19 04/03/21 History mcg (1,000 unit) chewable tablet (Vitamin D3) glucosamine sulfate 2KCl 500 1 tab PO BID 11/21/19 04/03/21 History mg-msm 166.6 mg-chondroitin 400 mg tablet omega 7-reb-fdf-fish oil 1,000 mg 1 cap PO BID 11/21/19 04/03/21 History (120 mg-180 mg) capsule (Fish Oil) vitamin B12 500 mcg-folic acid 400 1 tab PO DAILY 11/21/19 04/03/21 History mcg tablet hydrochlorothiazide 12.5 mg tablet 12.5 mg PO DAILY tab 10/23/20 04/03/21 History metformin 1,000 mg tablet 1,000 mg PO BID tab 10/23/20 04/03/21 History tolterodine 4 mg capsule,extended 4 mg PO DAILY cap 10/23/20 04/03/21 History release 24 hr Allergies Allergy/AdvReac Type Severity Reaction Status Date / Time kiwi [KIWI] Allergy Mild RASH Verified 02/07/21 11:12 strawberry [STRAWBERRY] Allergy Mild RASH Verified 02/07/21 11:12 travis AdvReac Intermediate Lump in Verified 02/07/21 11:12 my throat, sneezing Review of Systems Constitutional Constitutional: Denies excessive sweating, Denies fever(s), Denies headache(s), Denies weakness, Denies weight gain and Denies weight loss Eyes Eyes: Denies change in vision, Denies itchy eyes, Denies loss of vision and Denies other visual disturbances ENT Ears, Nose, Mouth, and Throat: No change in voice, No dysphagia, No dizziness, No otalgia, No headache(s), No hoarseness, No lip swelling, No neck pain, No sore throat, No throat swelling and No tongue swelling Cardiovascular Cardiovascular: Denies chest pain, Denies syncope, Denies rapid heart rate, Denies irregular heart rhythm, Denies palpitations, Denies dyspnea, Denies dyspnea on exertion and Denies slow heart rate Respiratory Respiratory: Denies chest congestion, Denies cough, Denies hemoptysis, Denies dy spnea, Denies dyspnea on exertion, Denies stridor and Denies wheezing Gastrointestinal Gastrointestinal: Denies abdominal pain, Denies bloating, Denies change in bowel habits, Denies change in stool character, Denies dysphagia, Denies nausea, Denies vomiting and Denies hematemesis Genitourinary Genitourinary: Denies hematuria, Denies difficulty urinating and Denies urinary frequency Musculoskeletal Musculoskeletal: Denies neck pain Neurologic Neurologic: Denies behavioral changes, Denies confusion, Denies dizziness, Denies syncope, Denies headache(s), Denies loss of vision, Denies memory loss and Denies weakness Psychiatric Psychiatric: Denies behavioral changes, Denies change in appetite, Denies confusion, Denies difficulty concentrating, Denies auditory hallucinations, Denies memory loss, Denies mood swings and Denies suicidal ideation Endocrine Endocrine: Denies excessive sweating and Denies palpitations Allergic/Immunologic Allergic/Immunologic: Denies itchy eyes, Denies lip swelling, Denies throat swelling, Denies tongue swelling and Denies wheezing Exam Vital Signs (past 8 hours): - 04/04/21 00:00 04/04/21 02:00 04/04/21 06:34 Pulse Rate 80 78 Respiratory Rate 20 16 Blood Pressure 150/68 H 165/76 H 138/63 Pulse Oximetry 98 Oxygen Delivery Method Room Air Narrative Exam Narrative: Elderly male in no obvious distress lying in hospital bed in the emergency department waiting for his hospital room HEENT-normocephalic atraumatic PERRLA EOMs intact Neck-no lymphadenopathy no bruits Lungs-clear with good breath sounds Heart-regular rate and rhythm Abdomen-positive bowel tones soft nontender minimal obesity Extremities-no cyanosis clubbing or edema Neuro-gait not tested but moves all 4 extremities muscle strength seems 5/5 upper and lower extremities no abnormal reflexes present Objective Labs Result Diagrams: 04/03/21 18:47 04/03/21 18:47 Labs: Laboratory Results - last 24 hr 04/03/21 04/03/21 04/03/21 18:47 18:47 18:47 WBC 5.3 RBC 4.45 L Hgb 13.5 Hct 39.5 L MCV 88.7 MCH 30.2 MCHC 34.1 RDW 13.2 Plt Count 142 L Neut % (Auto) 79.1 H Lymph % (Auto) 7.4 L [place] % (Auto) 9.2 Eos % (Auto) 4.2 H Baso % (Auto) 0.1 Neut # (Auto) 4200 Lymph # (Auto) 400 L [place] # (Auto) 500 Eos # (Auto) 200 Baso # (Auto) 0 PT 13.4 H INR 1.2 APTT 35 Sodium 134 L Potassium 3.5 Chloride 98 Carbon Dioxide 25 BUN 18 Creatinine 0.80 Estimated GFR > 60.0 BUN/Creatinine Ratio 22.5 H Glucose 154 H Calcium 9.2 Total Bilirubin 2.3 H AST 38 ALT 43 Alkaline Phosphatase 62 Total Protein 7.7 Albumin 4.4 Globulin 3.3 Albumin/Globulin Ratio 1.3 Lipase 130 Ur Bilirubin Confirm SARS-CoV-2 (PCR) 04/03/21 04/03/21 20:00 20:08 WBC RBC Hgb Hct MCV MCH MCHC RDW Plt Count Neut % (Auto) Lymph % (Auto) [place] % (Auto) Eos % (Auto) Baso % (Auto) Neut # (Auto) Lymph # (Auto) [place] # (Auto) Eos # (Auto) Baso # (Auto) PT INR APTT Sodium Potassium Chloride Carbon Dioxide BUN Creatinine Estimated GFR BUN/Creatinine Ratio Glucose Calcium Total Bilirubin AST ALT Alkaline Phosphatase Total Protein Albumin Globulin Albumin/Globulin Ratio Lipase Ur Bilirubin Confirm Negative SARS-CoV-2 (PCR) Negative Assessment & Plan Assessment & Plan narrative: 1. Neurologic symptoms-patient with possible TIA-will obtain MRI including angiography of the brain for further evaluation. Patient does have some underlying gait and issues with his ability to walk. I think clearly he will need to be seen by Physical and probably occupational therapy. Patient is taking aspirin perhaps adding clopidogrel to the regimen will lower his risk 2. Diabetes-continue usual medications and follow blood sugars 3. Hypertension-continue usual medications 4. Hyperlipidemia continue usual medications also will provide stroke risk reduction 5. BPH with LUTS-continue patient's usual medications 6. VTE prophylaxis-patient should receive Lovenox 7. Code status-patient should be full code in the event of sudden cardiac or respiratory arrest per his wishes Time Spent With Patient Critical Care time: I spent a total of [] minutes of critical care time on this patient's care today; this time is exclusive of procedural time.
[2021-04-04] MEDS: METOPROLOL ER 50 MG TABLET PO (13:58)
[2021-04-04] MEDS: ENOXAPARIN 40 MG/0.4 ML SYRINGE SUBCUT (13:58)
[2021-04-04] MEDS: ASPIRIN EC 81 MG TABLET PO (13:58)
[2021-04-04] MEDS: LOSARTAN 50 MG TABLET 100 MG PO (13:58)
[2021-04-04] MEDS: hydroCHLOROthiazide 25 MG TABLET 12.5 MG PO (13:59)
[2021-04-04] MEDS: INSULIN LISPRO 100 UNIT/ML 3ML VIAL SUBCUT ×2 (14:03→17:41)
[2021-04-04] MEDS: PANTOPRAZOLE DR 40 MG TABLET PO (14:14)
--- NOTE | 2021-04-04 16:57 | SLP.IPNOTE ---
Attempted to screen speech and swallowing. Per nursing, Jack's blood pressure drops significantly when he is seated upright and he needs to remain reclined/lying down at this point. Unsafe to evaluate swallow while reclined/lying down. Will evaluate tomorrow.
--- NOTE | 2021-04-04 18:56 | PC.NURSE ---
I administered his BP meds per orders. Pt aware I was giving him meds. later on pt wanted to get up, but BP dropped to 66 systolic when high fowlers position, 93% when laying down. pt asymptomatic. admitted she gave him meds this morning in the ED. BP slowly going up. notified provider. per Dr. Nieves give 500 NS of bolus if pt's sytolic <60, call if patient is symptomatic. at bedside. pt doing great. ate his dinner, bp stable now. pt on tele HR 80's.
[2021-04-04 20:10] LABS: Add Manual Diff / Slide Review NO; Basophils Absolute Auto 0 /uL (0-100); Basophils Percent Auto 0.4 % (0-2); Eosinophils Absolute Auto 300 /uL (0-450); Eosinophils Percent Auto 6.9 % (2-4); Hemoglobin 12.5 g/dL (13.5-17.5); Lymphocytes Absolute Auto 600 /uL (1100-4500); Lymphocytes Percent Auto 13.5 % (25-40); Mean Corpuscular HGB Conc 33.8 % (30-36); Mean Corpuscular Hemoglobin 30.1 PG (26-34); Mean Corpuscular Volume 89.3 fL (80-100); Monocytes Absolute Auto 600 /uL (0-900); Monocytes Percent Auto 13.6 % (3-14); Neutrophils Absolute Auto 3100 /uL (1500-7000); Neutrophils Percent Auto 65.6 % (50-75); Platelet Count 130 X10^3/uL (150-400); Red Blood Cell Count 4.14 X10^6/uL (4.5-5.9); Red Cell Distribution Width 13.3 % (11.6-14.8); White Blood Cell Count 4.7 X10^3/uL (4.5-11.0)
[2021-04-04 20:25] LABS: Alanine Aminotransferase 64 IU/L (<50); Albumin 3.8 g/dL (3.5-5.0); Albumin Globulin Ratio 1.3 (1.0-2.8); Alkaline Phosphatase 61 U/L (38-126); Aspartate Aminotransferase 57 IU/L (17-59); BUN Creatinine Ratio 16.7 (6-22); Bilirubin Total 1.9 mg/dL (0.2-1.3); Blood Urea Nitrogen 18 mg/dL (9-20); Carbon Dioxide 27 mmol/L (22-32); Chloride 98 mmol/L (98-107); Cholesterol 96 mg/dL (140-199); Estimated Glomerular Filt Rate > 60.0 mL/min (>60); Glucose 169 mg/dL (80-110); HDL Cholesterol 28 mg/dL (40-60); HEMOLYSIS < 15 (0-50); LDL Cholesterol Calculated 39 mg/dL (<100); Potassium 3.5 mmol/L (3.4-5.1); Sodium 134 mmol/L (137-145); Total Protein 6.8 g/dL (6.3-8.2); Triglycerides 146 mg/dL (35-150)
[2021-04-04] MEDS: ATORVASTATIN 20 MG TABLET PO (21:57)
[2021-04-04] MEDS: INSULIN GLARGINE 100 UNIT/ML 3ML PEN 20 UNIT SUBCUT (21:58)
[2021-04-04] MEDS: SODIUM CHLORIDE 0.9% FLUSH 10 ML IV (21:58)
[2021-04-05 00:33] VITALS: BP 136/54; PULSE 72; RESP 16; TEMP 36.8; O2SAT 94
[2021-04-05 03:52] VITALS: BP 118/52; PULSE 75; RESP 18; TEMP 36.8; O2SAT 95
[2021-04-05] MEDS: PANTOPRAZOLE DR 40 MG TABLET PO (05:59)
[2021-04-05 07:45] VITALS: O2SAT 94
--- NOTE | 2021-04-05 07:47 | PM.PN.1 ---
Subjective Subjective Date Patient Seen: 04/05/21 Time Patient Seen: 07:47 Interval history: Patient with the relatively uneventful day yesterday. Has not really been up out of bed by request of staff. Took quite some time to get him out of the ER to an open bed on the medical floor MRI done was unremarkable No new symptoms have developed Vital signs have been stable on the minimally hypotensive side if anything Blood sugars have been minimally elevated Exam Vital Signs (past 8 hours): - 04/05/21 00:33 04/05/21 03:52 Temperature 98.3 F 98.3 F Pulse Rate 72 75 Respiratory Rate 16 18 Blood Pressure 136/54 L 118/52 L Pulse Oximetry 94 95 Oxygen Delivery Method Room Air Oxygen Flow Rate 0 Objective Labs Result Diagrams: 04/04/21 20:05 04/04/21 20:05 Labs: Laboratory Results - last 24 hr 04/04/21 04/04/21 20:05 20:05 WBC 4.7 RBC 4.14 L Hgb 12.5 L Hct 37.0 L MCV 89.3 MCH 30.1 MCHC 33.8 RDW 13.3 Plt Count 130 L Neut % (Auto) 65.6 Lymph % (Auto) 13.5 L [place] % (Auto) 13.6 Eos % (Auto) 6.9 H Baso % (Auto) 0.4 Neut # (Auto) 3100 Lymph # (Auto) 600 L [place] # (Auto) 600 Eos # (Auto) 300 Baso # (Auto) 0 Sodium 134 L Potassium 3.5 Chloride 98 Carbon Dioxide 27 BUN 18 Creatinine 1.08 Estimated GFR > 60.0 BUN/Creatinine Ratio 16.7 Glucose 169 H Calcium 9.0 Total Bilirubin 1.9 H AST 57 ALT 64 H Alkaline Phosphatase 61 Total Protein 6.8 Albumin 3.8 Globulin 3.0 Albumin/Globulin Ratio 1.3 Triglycerides 146 Cholesterol 96 L LDL Cholesterol, Calc 39 HDL Cholesterol 28 L [facility] Medical History Arthritis Benign non-nodular prostatic hyperplasia with lower urinary tract symptoms (05/04/15) Bladder cancer (2007) Erectile dysfunction (05/04/15) Essential hypertension (05/04/15) GERD (gastroesophageal reflux disease) History of malignant neoplasm of bladder (05/04/15) Mixed hyperlipidemia (05/04/15) Post-traumatic osteoarthritis of left ankle (05/04/15) RBBB (right bundle branch block) Sciatica Type 2 diabetes mellitus without complication (05/04/15) Surgical History History of arthroplasty of left shoulder (~2017) History of carpal tunnel repair History of cataract removal with insertion of prosthetic lens History of knee replacement Status post rotator cuff repair Family History Father Diabetes mellitus Hypertension Heart disease Mother Hypertension Social History household members: spouse Smoking Status: Former smoker alcohol intake: current Assessment & Plan Assessment & Plan narrative: 1. TIA-patient without evidence of CVA on MRI. Symptoms have resolved. Would treat this as a TIA. I think the addition of clopidogrel to the aspirin make sense in effort to lower risk specially in the short term. Will have him up with physical therapy to ensure he is stable on his feet which is yet to happen given the delay in finding him a bed on the medical floor. Assuming that is okay he can probably be discharged 2. Diabetes-adequate although not perfect control. No change in therapies for today 3. Hypertension-if anything patient is minimally hypotensive. Continue current meds without changes he is really quite asymptomatic 4. BPH with LUTS-patient okay to take his own med once verified by pharmacy since we do not have the Uroxatral Note: Greater than 20 minutes total time was spent on day of service, evaluating the patient on the floor, including examining the patient, discussing clinical course with clinical and nursing staff, reviewing clinical course in the computer, preparing documentation and writing orders for continued management of care, discussing status with family as appropriate, reviewing plans for the next 24 hours with both patient/family and nursing staff as appropriate. Time Spent With Patient Critical Care time: I spent a total of [] minutes of critical care time on this patient's care today; this time is exclusive of procedural time.
[2021-04-05 09:00] VITALS: BP 90/39; PULSE 70; RESP 18; TEMP 36.8; O2SAT 94
--- NOTE | 2021-04-05 09:25 | SLP.IPNOTE ---
Order received. Pt seen in room eating breakfast. Introduced self an purpose. Pt reported that he has had no difficulty with eating or drinking and that his speech and communication is back to normal. Spent about 10 minutes with pt, who was observed to havo difficulty with speech intelligibility, language and swallowing. No ST indicated. Will d/c order
[2021-04-05] MEDS: ASPIRIN EC 81 MG TABLET PO (09:38)
[2021-04-05] MEDS: CLOPIDOGREL 75 MG TABLET PO (09:38)
[2021-04-05] MEDS: ENOXAPARIN 40 MG/0.4 ML SYRINGE SUBCUT (09:39)
[2021-04-05] MEDS: INSULIN LISPRO 100 UNIT/ML 3ML VIAL SUBCUT ×2 (09:39→13:19)
[2021-04-05] MEDS: SODIUM CHLORIDE 0.9% FLUSH 10 ML IV (09:40)
--- NOTE | 2021-04-05 10:02 | PT.IIE ---
Surgical History (Last Reviewed 04/05/21 @ 07:48 by Jack Grant MD) History of carpal tunnel repair History of cataract removal with insertion of prosthetic lens History of knee replacement Status post rotator cuff repair Medical History (Last Reviewed 04/05/21 @ 07:48 by Jack Grant MD) Arthritis Benign non-nodular prostatic hyperplasia with lower urinary tract symptoms (05/04/15) Bladder cancer (2007) Erectile dysfunction (05/04/15) Essential hypertension (05/04/15) GERD (gastroesophageal reflux disease) History of malignant neoplasm of bladder (05/04/15) Mixed hyperlipidemia (05/04/15) Post-traumatic osteoarthritis of left ankle (05/04/15) RBBB (right bundle branch block) Sciatica Type 2 diabetes mellitus without complication (05/04/15) Physical Therapy Inpatient Evaluation/Re-Eval M1 PT/OT-IP Prior Functional Status Start: 04/05/21 13:41 Freq: NEEDED Status: Active Protocol: Document 04/05/21 10:02 AB (Rec: 04/05/21 13:57 AB [id number]) Medical Review Prior Functional Status Medical History Reviewed Yes Communication able to make needs known Mobility and Gait pt stated that he is modified independent with all mobilities and ambulation without AD Social History Household Members spouse Living Arrangements House Number of Floors (Floors) Two Floors Number of Stairs To Enter/Railing? 3 steps without rails: pt uses stationary bike handle on R side and wall on L for support 13 steps to bedroom level with wide B rails and can only hold on to one rail at a time Home Environment Standard Height Toilet,Walk in Shower Home Equipment Front Wheel Walker,Four Wheel Walker,Straight Cane,Shower Seat with Backrest,Hand Held Shower,Grab Bars In Shower Additional Social History Comment L side bed cane M2 PT-IP Current Condition Start: 04/05/21 13:41 Freq: NEEDED Status: Active Protocol: Document 04/05/21 10:02 AB (Rec: 04/05/21 13:57 AB [email or web address]) Physical Therapy Current Condition Current Condition Evaluation Date 04/05/21 Treatment Diagnosis TIA; difficulty in walking Onset Date 04/03/21 M3 PT-IP Subjective Start: 04/05/21 13:41 Freq: NEEDED Status: Active Protocol: Document 04/05/21 10:02 AB (Rec: 04/05/21 13:57 AB [id number]) Subjective Physical Therapy Visit Type Type Initial Evaluation Visit Start Time 10:02 Visit Stop Time 11:20 Total Visit Minutes 78 Number of LAMP INSPECTOR Visits 0 Physical Therapy Visit Comments Patient Comments agreeable to do PT M4 PT-IP Mobility and Gait Start: 04/05/21 13:41 Freq: NEEDED Status: Active Protocol: Document 04/05/21 10:02 AB (Rec: 04/05/21 13:57 [id number]) PT-Bed Mobility Assessment Supine to Sit Supine to Sit Standby Assistance PT-Transfer Assessment Sit to and From Stand Sit to and from Stand Standby Assistance,1 Person Assistance,Use of Upper Extremities Equipment Transfer Assistive Device Gait Belt,Front Wheeled Walker Orthotic/Prosthetic Devices or Brace: No Transfers Transfer Destination Chair Transfer Technique ambulated Transfer Ability Level of Assist Standby Assistance,Contact Guard Assistance,1 Person Assistance,Use of Upper Extremities Comments Mobility Comments spouse in room and stated that pt's BP has been low due to pt getting double dosage of BP medication. BP in supine 118 /49. pt completed supine to sit SBA and cues. pt was able to sit on EOB SBA and no c/o dizziness/lightheadedness. BP in sittin/64. pt completed sit to stand SBA to CGA and ambulated in room without AD 40 ft SBA to CGA. presents with antalgic gait with increase lateral trunk lean to the R and increase B LE ER. pt sat on chair. Pt agreed to ambulate using FWW and completed SBA to CGA ~ 20 ft. pt stated that he prefers the 4WW. pt ambulated in the hallway using 4WW SBA to occaional CGA . completed up/down steps using R rail to assist SBA ascending, CGA descending. educated pt on techniques with stair climbing. assisted pt back to his room. ambulated ~ 20 ft using 4WW to the chair SBA. pt with difficulty with sit to stand . educated on sit to stand techniques. completed sit <> stand x 4 reps SBA. positioned pt on chair. call light and table placed within reach. pt and spouse has no other concerns and feels comfortable with pt to go home. BP at end of PT session: 119/52 Gait Assessment Gait Gait Assistance Required: Standby Assistance,Contact Guard Assist Distance (Feet) 150 Able to Maintain Weight Bearing Status Yes During Gait Assistive Devices Assistive Device None,Gait Belt,4 Wheeled Walker Orthotic/Prosthetic Devices or Brace: No Gait Deviations General Gait Pattern Antalgic,Decreased Stride Length,Decreased Feet Clearance,Lateral Trunk Lean Factors Limiting Gait Function Factors Limiting Gait Function Decreased Activity Tolerance, Decreased Strength,Poor Balance,Poor Safety Awareness Stair Climbing Assessment Evaluation Level of Assist On Stairs Standby Assistance,Contact Guard Assistance Devices Stair Climbing Assistive Devices Right Railing Technique/Endurance Stair Climbing Direction Ascend and Descend Stair Climbing Technique Step to Step Number of Steps Climbed 3 Query Text: Stair Climbing Set # Repetitions (reps) 1 Comments Stair Climbing Comments pls refer to mobility section for details PT-Balance Assessment Sitting Balance and Reactions Static Sitting Balance Ability Good Dynamic Sitting Balance Ability Good Standing Balance and Reactions Static Standing Balance Ability Good Dynamic Standing Balance Ability Fair Device Used FWW M5 PT-IP Objective Assessments Start: 04/05/21 13:41 Freq: NEEDED Status: Active Protocol: Document 04/05/21 10:02 AB (Rec: 04/05/21 13:57 AB [id number]) Orientation Orientation/Cognition Level of Alertness Alert Orientation Name,Place,Situation Language Function Ability Hard of Hearing Safety Awareness Decreased Safety Awareness Memory Description Short Term Impaired Gross Range of Motion Lower Extremity ROM Assessment Within Functional Limits Coordination Assessment Gross Coordination Gross Coordination WNL Muscle Tone Muscle Tone WNL Yes M6 PT-IP Treatment Start: 04/05/21 13:41 Freq: NEEDED Status: Active Protocol: Document 04/05/21 10:02 AB (Rec: 04/05/21 13:57 AB [email or web address]) Physical Therapy Treatment Education Education Provided Safety M7 PT-IP Assessment and Plan Start: 04/05/21 13:41 Freq: NEEDED Status: Active Protocol: Document 04/05/21 10:02 AB (Rec: 04/05/21 13:57 AB [email or web address]) PT Summary Assessment and Plan Potential Rehabilitation Potential Good Status of Condition at Evaluation Stable Summary Impairments Pain,ROM,Strength,Balance, Coordination,Sensation,Tone, Cognition,Bed Mobility, Transfers,Gait,Activity Tolerance Assessment Summary pt requiring SBA to occasional CGA with mobility. pt's spouse will be assist pt when needed. Pt stated that he has been going to an outpt PT for balanace issues and will continue upon d/c. pt may go home when medically stable. recommending use of 4WW at this time for ambulation for safety. pt and spouse agreed. Goals Bed Mobility Goal Independent Transfer Goal Independent Gait Goal Independent Gait Distance 250 Other Goals up/down 13 step R rail mod I Days to Meet Goals 5 Frequency of Treatment Frequency Of Treatment Once a Day Treatment Plan Physical Therapy Treatment Plan Bed Mobility Training,Transfer Training,Gait Training, Therapeutic Exercise,Balance Retraining,Discharge Planning, Hot or Cold Pack,Neuromuscular Re-ed,Coordination Retraining Recommendations To Nursing Amount of Assist Needed Standby Assistance Discharge Recommendations PT Discharge Recommendations Home with Assistance, Outpatient PT Transportation Needs at Discharge Private Vehicle
--- NOTE | 2021-04-05 11:05 | CM.DANOTE ---
DCP: Case received, EMR reviewed and met with patient. Introduced self and role. Was able to obtain information regarding patient's baseline activity level prior to hospitalization. DCP assessment completed with information currently available. Patient is a 75 year old male who admitted yesterday evening to the care of the hospitalist team. PCP: Dr. Grant. Payer: confirmed: [employer] Medicare. Patient came to the hospital via private vehicle secondary to having difficulty with word finding. Patient holds diagnosis of TIA, he has already had MRI. Patient does have history of gait issues, at his baseline. Met with patient in his room. He is alert and oriented, pleasant. He resides in [place] with his spouse, Irene. Patient indicated that at his baseline he uses a cane. He also mentioned that he wears a brace, due to left ankle disability. P: DCP to continue to follow. Home is patient's goal. Will see how patient does with the therapy team. Davina Boyer RN/Birdcage Assembler Discharge Planning/Care Management CM Discharge Assessment Start: 04/05/21 11:03 Freq: Status: Active Protocol: Document 04/05/21 11:03 (Rec: 04/05/21 11:05 [id number]) Discharge Planning Assessment Assigned Clothing Supervisor Davina Boyer RN/Birdcage Assembler Advance Directives? Yes Advance Directives on File Yes History Provided By Patient,Family Member,Medical Record Prior Living Arrangements House Household Members spouse Type of transporation used prior to Drives own vehicle admit Independent with ADL's Yes Is patient alert and oriented? Yes DME Already Rented / Owned Cane Patient/Family Preference Home with Home Health Comment Will see how he does with P.T, home health may be an option for patient. Barriers to Discharge No Discharge Plan Home Transportation Arrangement Spouse Referrals Initiated Other Additional Comment Will see how patient does with P.t. Whiteboard Updated in Patient Room with Yes name and ext. # of Clothing Supervisor Review Status In Process Next Review Type Continued Stay Review
[2021-04-05 11:50] VITALS: BP 114/58; PULSE 76; RESP 18; TEMP 36.6; O2SAT 97
--- NOTE | 2021-04-05 14:11 | P.DS_ITS ---
History of Present Illness History of Present Illness Date Patient Seen: 04/05/21 Chief complaint: fever Narrative: 75-year-old male admitted with possible stroke or TIA Morning of admission he got up and tried to go to the bathroom and felt like his legs were too weak to support him. He has also had some trouble with speech. He received his COVID-19 vaccine booster and has had low-grade fevers for couple of days after that but this seems something new. He has also had difficulty with his gait for quite some time is actually going to physical therapy as an outpatient actively has had some falls and or near misses. However again this seems to be more dramatic and or something new. Upon arrival in the ED he had some resolution of symptoms but was found to have some cninck-[id number]-[id number] abnormalities. NIH stroke scale was 2. He was admitted for further evaluation. Head CT and other evaluation in the emergency department unremarkable Patient does have stroke risk factors including hyperlipidemia hypertension and diabetes. White blood cell count was normal and no obvious evidence of infection (concern given the fevers although likely related to vaccine) Discharge Providers Provider Date of admission: 04/03/21 21:35 Discharge Date: 04/05/21 Primary care physician: Jack Grant MD Consults: 04/04/21 13:11 Consult to Discharge Planning Routine Comment: Consult to Discharge Planning Routine Comment: Consult to Occupational Therapy Evaluate & Treat Comment: Physician Instructions: Evaluate and treat Consult to Occupational Therapy Evaluate & Treat Comment: Physician Instructions: Evaluate and treat Consult to Physical Therapy Evaluate & Treat Comment: Physician Instructions: Evaluate and Treat Consult to Physical Therapy Evaluate & Treat Comment: Physician Instructions: Evaluate and Treat Consult to Speech Therapy Evaluate & Treat Comment: Physician Instructions: Evaluate and treat Discharge provider: Jack Grant MD Summary Hospital Course Discharge Diagnosis: 1. TIA 2. Hypertension 3. Type 2 diabetes Hospital Course: Patient was admitted to the hospital floor. He had MRI of the brain which failed to reveal evidence of acute or subacute CVA. He had no dysrhythmias not ed. Patient was felt to be stable in fine on his feet with physical therapy. Blood sugars are well controlled Therefore patient was felt to be okay for discharge. Does felt this was a possible if not probable TIA and clopidogrel was added to his aspirin for dual anti-platelet therapy at least in the short term to reduce risk of stroke Patient also somewhat hypotensive during his hospitalization and his ARB will be discontinued upon discharge with plans to re-evaluate his antihypertensive regimen as an outpatient Exam Vital Signs (past 8 hours): - 04/05/21 07:45 04/05/21 09:00 04/05/21 11:50 Temperature 98.3 F 98 F Pulse Rate 70 76 Respiratory Rate 18 18 Blood Pressure 90/39 L 114/58 L Pulse Oximetry 94 94 97 Oxygen Delivery Method Room Air Oxygen Flow Rate 0 Objective Labs Result Diagrams: 04/04/21 20:05 04/04/21 20:05 Labs: Laboratory Results - last 24 hr 04/04/21 04/04/21 20:05 20:05 WBC 4.7 RBC 4.14 L Hgb 12.5 L Hct 37.0 L MCV 89.3 MCH 30.1 MCHC 33.8 RDW 13.3 Plt Count 130 L Neut % (Auto) 65.6 Lymph % (Auto) 13.5 L [place] % (Auto) 13.6 Eos % (Auto) 6.9 H Baso % (Auto) 0.4 Neut # (Auto) 3100 Lymph # (Auto) 600 L [place] # (Auto) 600 Eos # (Auto) 300 Baso # (Auto) 0 Sodium 134 L Potassium 3.5 Chloride 98 Carbon Dioxide 27 BUN 18 Creatinine 1.08 Estimated GFR > 60.0 BUN/Creatinine Ratio 16.7 Glucose 169 H Calcium 9.0 Total Bilirubin 1.9 H AST 57 ALT 64 H Alkaline Phosphatase 61 Total Protein 6.8 Albumin 3.8 Globulin 3.0 Albumin/Globulin Ratio 1.3 Triglycerides 146 Cholesterol 96 L LDL Cholesterol, Calc 39 HDL Cholesterol 28 L [facility] Medical History Arthritis Benign non-nodular prostatic hyperplasia with lower urinary tract symptoms (05/04/15) Bladder cancer (2007) Erectile dysfunction (05/04/15) Essential hypertension (05/04/15) GERD (gastroesophageal reflux disease) History of malignant neoplasm of bladder (05/04/15) Mixed hyperlipidemia (05/04/15) Post-traumatic osteoarthritis of left ankle (05/04/15) RBBB (right bundle branch block) Sciatica Type 2 diabetes mellitus without complication (05/04/15) Surgical History History of arthroplasty of left shoulder (~2017) History of carpal tunnel repair History of cataract removal with insertion of prosthetic lens History of knee replacement Status post rotator cuff repair Family History Father Diabetes mellitus Hypertension Heart disease Mother Hypertension Social History household members: spouse Smoking Status: Former smoker alcohol intake: current Discharge Plan Discharge Plan Patient Disposition: Home Discharge orders & Medications Prescriptions: New clopidogrel 75 mg Tablet 75 mg PO DAILY Qty: 90 RF: 3 pantoprazole 40 mg Tablet,Delayed Release (Dr/Ec) 40 mg PO 0600 Qty: 90 RF: 3 Continued metformin 1,000 mg tablet 1,000 mg PO BID RF: 0 tolterodine 4 mg capsule,extended release 24hr 4 mg PO DAILY RF: 0 atorvastatin 20 mg Tablet 20 mg PO BEDTIME RF: 0 metoprolol succinate 50 mg Tablet Extended Release 24 Hr 50 mg PO QAM RF: 0 glimepiride 1 mg Tablet 1 mg PO QAM RF: 0 alfuzosin 10 mg Tablet Extended Release 24 Hr 10 mg PO DAILY RF: 0 PreserVision AREDS-2 [id number]-[id number] Capsule 1 tab PO BID RF: 0 aspirin 81 mg Tablet,Delayed Release (Dr/Ec) 81 mg PO DAILY RF: 0 glucosamine [id number]-tdfrjssdc 500-166.6-400 mg Tablet 1 tab PO BID RF: 0 cholecalciferol (vitamin D3) [Vitamin D3] 25 mcg (1,000 unit) Tablet,Chewable 25 mcg PO DAILY RF: 0 omega 5-xip-hcs-fish oil [Fish Oil] 1,000 mg (120 mg-180 mg) Capsule 1 cap PO BID RF: 0 vitamin Q17-rgigj acid 500-400 mcg Tablet 1 tab PO DAILY RF: 0 Discontinued hydrochlorothiazide 12.5 mg tablet 12.5 mg PO DAILY RF: 0 omeprazole 40 mg Capsule,Delayed Release(Dr/Ec) 40 mg PO QAM RF: 0 irbesartan 300 mg Tablet 300 mg PO QAM RF: 0 naproxen 500 mg Tablet 1,000 mg PO DAILY PRN (Reason: Pain) RF: 0 Follow up/Referrals: Jack Grant MD [Primary Care Provider] - 2 Weeks Discharge Health Status Multidrug resistant organism: No MDRO Diet/Activity/Treatments Diet: Diet as Tolerated and Carb-consistent/Diabetic Discharge Data Primary Care Provider: Jack Grant Attending Provider: Jack Grant
--- NOTE | 2021-04-05 14:13 | OT.IP.EVAL ---
Past Medical History (Last Reviewed 04/05/21 @ 07:48 by Jack Grant MD) Arthritis Benign non-nodular prostatic hyperplasia with lower urinary tract symptoms (05/04/15) Bladder cancer (2007) Erectile dysfunction (05/04/15) Essential hypertension (05/04/15) GERD (gastroesophageal reflux disease) History of arthroplasty of left shoulder (~2017) History of malignant neoplasm of bladder (05/04/15) Mixed hyperlipidemia (05/04/15) Post-traumatic osteoarthritis of left ankle (05/04/15) RBBB (right bundle branch block) Sciatica Type 2 diabetes mellitus without complication (05/04/15) Surgical History (Last Reviewed 04/05/21 @ 07:48 by Jack Grant MD) History of arthroplasty of left shoulder (~2016) History of carpal tunnel repair History of cataract removal with insertion of prosthetic lens History of knee replacement Status post rotator cuff repair Occupational Therapy Inpatient Evaluation/Re-Eval M1 PT/OT-IP Prior Functional Status Start: 04/05/21 13:41 Freq: NEEDED Status: Active Protocol: Document 04/05/21 14:18 [facility] (Rec: 04/05/21 14:35 [facility] [id number]) Medical Review Prior Functional Status Medical History Reviewed Yes Communication able to make needs known Mobility and Gait pt stated that he is modified independent with all mobilities and ambulation without AD Activities of Daily Living and IADL's Pt needing LB dressing equipment to assist with LB dressing needs at home. Social History Household Members spouse Living Arrangements House Number of Floors (Floors) Two Floors Number of Stairs To Enter/Railing? 3 steps without rails: pt uses stationary bike handle on R side and wall on L for support 13 steps to bedroom level with wide B rails and can only hold on to one rail at a time Home Environment Standard Height Toilet,Walk in Shower Home Equipment Front Wheel Walker,Four Wheel Walker,Straight Cane,Shower Seat with Backrest,Hand Held Shower,Grab Bars In Shower Additional Social History Comment L side bed cane M2 OT-IP Current Condition Start: 04/05/21 14:17 Freq: Status: Active Protocol: Document 04/05/21 14:18 [facility] (Rec: 04/05/21 14:35 [facility] [id number]) Occupational Therapy Current Condition Current Condition Evaluation Date 04/05/21 Treatment Diagnosis TIA Diagnosis Onset Date 04/03/21 M3 OT- IP Subjective and Pain Start: 04/05/21 14:17 Freq: Status: Active Protocol: Document 04/05/21 14:18 [facility] (Rec: 04/05/21 14:35 [facility] [id number]) OT- Subjective Occupational Therapy Visit Type Type Initial Evaluation Visit Start Time 13:45 Visit Stop Time 14:13 Total Visit Minutes 28 Occupational Therapy Visit Comments Patient Comments Pt just in the bathroom when OT came in to see pt for OT eval. Pt's present for OT eval. Patient/Caregiver Goals To go home. OT Pain Assessment Pain When Pain Assessed At Rest Pain Present Pain Present Denied Pain M4 OT- IP ADL's Start: 04/05/21 14:17 Freq: Status: Active Protocol: Document 04/05/21 14:18 [facility] (Rec: 04/05/21 14:35 [facility] [id number]) OT [id number] Comments OT Self-Feeding Comments Pt states had no issues. OT ADL-Grooming Comments OT Grooming Comments Pt's had to point out where the soap dispenser was located on the sink. OT ADL-Oral Care Comments Oral Care Comments Not performed. OT ADL-Dressing Comments OT Dressing Comments Pt not wanting to try as states using LB dressing equipment at home. OT ADL-Toileting General Evaluation Toileting Ability Standby Assistance OT ADL-Bathing Comments OT Bathing Comments NOt at this time. M5 OT- IP IADL's Start: 04/05/21 14:17 Freq: Status: Active Protocol: Document 04/05/21 14:18 [facility] (Rec: 04/05/21 14:35 [facility] [id number]) OT-Instrumental Activities of Daily Living Home Safety Awareness Home Safety Comments Pt insistent that he is fine and doing well and feels that he will be able to put up the Nicole light up soon. Pt's aware of pt's decreased insight to his needs at this time and states to assist and supervise pt for all needs. Driving Driving Concerns Identified Regarding Safety M6 OT- IP Functional Cognition Start: 04/05/21 14:17 Freq: Status: Active Protocol: Document 04/05/21 14:18 [facility] (Rec: 04/05/21 14:35 [facility] [id number]) Cognitive Factors Limiting Selfcare Function Cognitive Ability Level of Alertness Alert Patient Orientation Name,Place,Situation Attention Span Ability Capable of Focused Attention, Capable of Sustained Attention Ability to Follow Commands Able to Follow One Step Commands Memory Description Short Term Impaired Safety Awareness Underestimates Need for Assistance Cognitive Comments Cognitive Assessment Comments Pt scored 233 seconds on Lorane Making Part B which implies severe impairments for visual attention, task switching, speed of processing, mental flexibility and executive functioning. Base on [employer] a score of 180 seconds implies someone is more apt to get into a car accident. OT- Vision and Hearing OT- Hearing Assessment OT- Hearing Assessment WFL OT- Vision Assessment Visual Acuity Glasses For Reading M7 OT- IP Mobility and Balance Start: 04/05/21 14:17 Freq: Status: Active Protocol: Document 04/05/21 14:18 [facility] (Rec: 04/05/21 14:35 [facility] [id number]) OT-Transfer Assessment Sit to and From Stand Sit to and from Stand Standby Assistance Transfers Transfer Ability Standby Assistance Technique Transfer Destination Chair,Toilet Comments Mobility Comments SBA with FWW to the recliner. OT- Balance Assessment Sitting Balance and Reactions Static Sitting Balance Ability Good Dynamic Sitting Balance Ability Good Standing Balance and Reactions Static Standing Balance Ability Good Dynamic Standing Balance Ability Fair M8 OT- IP Objective Assessments Start: 04/05/21 14:17 Freq: Status: Active Protocol: Document 04/05/21 14:18 [facility] (Rec: 04/05/21 14:35 [facility] [id number]) OT Gross Range of Motion Upper Extremity Range of Motion Assessment Within Functional Limits OT Strength Upper Extremity Strength Assessment Within Functional Limits OT- Coordination Assessment Comments Coordination Comments Increased time L> R Pt scored 42 seconds for right hand and 47 secs for left hand which both implies deficits for coordination. Pt states has had carpal tunnel which make it hard for him to use his hands. OT-Muscle Tone Assessment Muscle Tone WNL Yes Pt needing extra time to process the movements on this left hand in order to copy with his right arm. M9 OT- IP Assessment and Plan Start: 04/05/21 14:17 Freq: Status: Active Protocol: Document 04/05/21 14:18 [facility] (Rec: 04/05/21 14:35 [facility] [id number]) OT Summary Assessment and Plan Potential Rehabilitation Potential Good Analytic Complexity at Evaluation Low Summary OT Impairments Balance,Coordination, Functional Cognition, Functional Mobility,Grooming, Dressing,Toileting,Bathing, Activity Tolerance Progress Towards Goals Progressing Toward Goals,Slow Progress due to Cognition Assessment Summary Pt is insistent on going home. Pt has decrease in sight to his need as feels that he will be able to put up the Nicole light even though he is now using a FWW and a little unsteady on his feet. Pt's supportive is aware of his cognitive deficits and suggestion to assist/ supervise pt at all times. In addition suggested pt to have a shower chair for showering needs. Pt looking to go home when medically stable. Goals Grooming Goal Independent Dressing Goal Independent Toileting Goal Independent Bathing Goal Independent Toilet Transfer Goal Independent Shower Transfer Goal Independent Days to Meet Goals 7 Frequency of Treatment Frequency Of Treatment Once a Day Treatment Plan OT Treatment Plan ADL Training,Functional Cognition Training,Functional Mobility,Patient/Family Education,Discharge Planning Other Treatment Recommendations and Next shower and redo Lorane making Treatment Focus Part B and try SLUMS. Discharge Recommendations OT Discharge Recommendations Home with / Assist Available Other Discharge Recommendations Pending how pt clears may benefit from OT for coordination and cognitive needs. Home Equipment Needs SHower chair Transportation Needs at Discharge Private Vehicle
--- NOTE | 2021-04-05 16:24 | PC.NURSE ---
Discharge: Pt feels ready to d/c to home. BP had been decreased this am. BP meds were held. Pt was not showing any adverse effects from low bp. Seen by PT and he did pass PT. He would like to d/c to home. MD office called and updated on pt's condition. He can go home. Pt does have a bp cuff at home. He is to take his bp daily and call MD if he has more episodes of low bp. He said he can do this. Otherwise denies any problems. NIH was 0. Reviewed d/c packet and TIA information. Reviewed his changes in medications. Spouse present at time of teaching. Questions answered. Pt d/c to home via auto w/spouse.
== END 2021-04-05 15:00 | disposition home or self-care (01) ==
LOC: ED 18:36 → AC 21:36
PROVIDERS: Admitting Provider Family Medicine; Emergency Provider Emergency Medicine; Family Provider Family Medicine; PCP Internal Medicine; Referring Provider Emergency Medicine; Visit Provider Internal Medicine
DX: G45.9 Transient cerebral ischemic attack, unspecified (principal); R50.9 Fever, unspecified; R47.1 Dysarthria and anarthria; R53.1 Weakness; R29.702 NIHSS score 2; Z91.81 History of falling; I10 Essential (primary) hypertension; E78.5 Hyperlipidemia, unspecified; E11.9 Type 2 diabetes mellitus without complications; Z79.84 Long term (current) use of oral hypoglycemic drugs; N40.1 Benign prostatic hyperplasia with lower urinary tract symptoms; Z20.822 Contact with and (suspected) exposure to COVID-19
CPT/HCPCS: 36415; 70450; 70548; 70553; 80053; 80061; 81003; 82962; 83690; 85025; 85610; 85730; 87635; 96374; 97116; 97161; 97166; 97530; 99217; 99220; 99285; C9803; G0378; J1650; J1815

== ENCOUNTER → 2021-05-01 09:41 | Outpatient (CLI) | payer MEDICARE, SELFPAY ==
[2021-04-04 13:12] VITALS: BMI 38.9
[2021-05-01 10:49] LABS: Alanine Aminotransferase 31 IU/L (<50); Albumin 4.2 g/dL (3.5-5.0); Albumin Globulin Ratio 1.4 (1.0-2.8); Alkaline Phosphatase 93 U/L (38-126); Aspartate Aminotransferase 27 IU/L (17-59); BUN Creatinine Ratio 18.4 (6-22); Bilirubin Total 1.1 mg/dL (0.2-1.3); Blood Urea Nitrogen 16 mg/dL (9-20); Calcium 9.2 mg/dL (8.4-10.2); Carbon Dioxide 31 mmol/L (22-32); Chloride 103 mmol/L (98-107); Estimated Glomerular Filt Rate > 60.0 mL/min (>60); Glucose 142 mg/dL (80-110); HEMOLYSIS < 15 (0-50); Potassium 4.4 mmol/L (3.4-5.1); Sodium 141 mmol/L (137-145); Total Protein 7.2 g/dL (6.3-8.2)
== END ==
PROVIDERS: Family Provider Family Medicine; PCP Internal Medicine; Referring Provider Internal Medicine; Visit Provider Internal Medicine
DX: E11.9 Type 2 diabetes mellitus without complications (principal); I10 Essential (primary) hypertension
CPT/HCPCS: 36415; 80053; 83036

== ENCOUNTER → 2021-11-12 12:26 | Outpatient (CLI) | payer MEDICARE, SELFPAY ==
[2021-04-04 13:12] VITALS: BMI 38.9
[2021-11-12 14:01] LABS: Hemoglobin A1C% w Est Avg Glu 6.4 % (4.0-6.0)
[2021-11-12 14:14] LABS: BUN Creatinine Ratio 25.4 (6-22); Blood Urea Nitrogen 18 mg/dL (9-20); Calcium 8.9 mg/dL (8.4-10.2); Carbon Dioxide 28 mmol/L (22-32); Chloride 104 mmol/L (98-107); Estimated Glomerular Filt Rate > 60 mL/min (>60); Glucose 132 mg/dL (80-110); HEMOLYSIS < 15 (0-50); Potassium 4.3 mmol/L (3.4-5.1); Sodium 140 mmol/L (137-145)
== END ==
PROVIDERS: Family Provider Family Medicine; PCP Internal Medicine; Referring Provider Internal Medicine; Visit Provider Internal Medicine
DX: E11.9 Type 2 diabetes mellitus without complications (principal); I10 Essential (primary) hypertension
CPT/HCPCS: 36415; 80048; 83036

== ENCOUNTER → 2022-08-04 16:39 | Outpatient (CLI) | payer MEDICARE, SELFPAY ==
[2021-04-04 13:12] VITALS: BMI 38.9
[2022-08-04 17:44] LABS: Hemoglobin A1C% w Est Avg Glu 7.1 % (4.0-6.0)
[2022-08-04 17:52] LABS: Creatinine Urine Random 82.3 mg/dL
[2022-08-04 17:54] LABS: Alanine Aminotransferase 33 IU/L (<50); Albumin 4.5 g/dL (3.5-5.0); Albumin Globulin Ratio 1.3 (1.0-2.8); Alkaline Phosphatase 113 U/L (38-126); Aspartate Aminotransferase 29 IU/L (17-59); BUN Creatinine Ratio 20.8 (6-22); Bilirubin Total 1.3 mg/dL (0.2-1.3); Blood Urea Nitrogen 15 mg/dL (9-20); Calcium 9.3 mg/dL (8.4-10.2); Carbon Dioxide 30 mmol/L (22-32); Chloride 99 mmol/L (98-107); Estimated Glomerular Filt Rate > 60 mL/min (>60); Globulin 3.5 g/dL (1.7-4.1); Glucose 109 mg/dL (80-110); HEMOLYSIS < 15 (0-50); Potassium 4.1 mmol/L (3.4-5.1); Sodium 139 mmol/L (137-145)
[2022-08-04 17:59] LABS: Microalbumin Urine Random < 0.6 mg/dL (0-1.6)
== END ==
PROVIDERS: Family Provider Family Medicine; PCP Internal Medicine; Referring Provider Internal Medicine; Visit Provider Internal Medicine
DX: E11.9 Type 2 diabetes mellitus without complications (principal); E78.2 Mixed hyperlipidemia; I10 Essential (primary) hypertension
CPT/HCPCS: 36415; 80053; 82043; 82570; 83036

== ENCOUNTER → 2023-01-30 13:16 | Outpatient (CLI) | payer MEDICARE, SELFPAY ==
[2022-08-05 14:59] VITALS: BMI 38.9
[2023-01-30 15:07] LABS: Alanine Aminotransferase 41 IU/L (<50); Albumin 4.4 g/dL (3.5-5.0); Albumin Globulin Ratio 1.4 (1.0-2.8); Alkaline Phosphatase 107 U/L (38-126); Aspartate Aminotransferase 36 IU/L (17-59); BUN Creatinine Ratio 21.9 (6-22); Bilirubin Total 1.4 mg/dL (0.2-1.3); Blood Urea Nitrogen 16 mg/dL (9-20); Calcium 9.1 mg/dL (8.4-10.2); Carbon Dioxide 26 mmol/L (22-32); Chloride 102 mmol/L (98-107); Cholesterol 102 mg/dL (140-199); Estimated Glomerular Filt Rate > 60 mL/min (>60); Globulin 3.2 g/dL (1.7-4.1); Glucose 170 mg/dL (80-110); HDL Cholesterol 36 mg/dL (40-60); HEMOLYSIS < 15 (0-50); LDL Cholesterol Calculated 50 mg/dL (<100); Potassium 4.4 mmol/L (3.4-5.1); Sodium 140 mmol/L (137-145); Total Protein 7.6 g/dL (6.3-8.2); Triglycerides 82 mg/dL (35-150)
== END ==
PROVIDERS: Family Provider Family Medicine; PCP Internal Medicine; Referring Provider Internal Medicine; Visit Provider Internal Medicine
DX: E11.9 Type 2 diabetes mellitus without complications (principal); I10 Essential (primary) hypertension; E78.2 Mixed hyperlipidemia
CPT/HCPCS: 36415; 80053; 80061; 83036

== ENCOUNTER → 2023-04-01 15:42 | Outpatient (CLI) | payer MEDICARE, SELFPAY ==
[2023-04-01 15:36] VITALS: BMI 38.9
[2023-04-01 17:42] LABS: Appearance Urine UA CLEAR; Bilirubin Urine UA NEGATIVE (NEGATIVE); Color Urine UA YELLOW; Glucose Urine UA NEGATIVE (Negative); Ketones Urine UA NEGATIVE (NEGATIVE); Leukocyte Esterase Urine UA NEGATIVE (NEGATIVE); Nitrite Urine UA NEGATIVE (Negative); Occult Blood Urine UA NEGATIVE (Negative); Protein Urine UA TRACE (Negative); Specific Gravity Urine UA >=1.030 (1.000-1.035); pH Urine UA 5.5 (4.5-8.0)
[2023-04-01 18:06] LABS: Bacteria Urine Occasional (0-1); Culture Indicated Urine Specimen Cultured; Mucus Urine 3+ (Negative); RBC Urine None Seen (0-5/HPF); Squamous Epithelial Cell Urine 1-5 /HPF (0-5/HPF); WBC Urine 5-10/HPF (0-5/HPF)
== END ==
PROVIDERS: Family Provider Family Medicine; PCP Internal Medicine; Visit Provider Urology
DX: N40.1 Benign prostatic hyperplasia with lower urinary tract symptoms (principal)
CPT/HCPCS: 81001; 87086

== ENCOUNTER → 2023-04-29 11:38 | Outpatient (CLI) | payer MEDICARE, SELFPAY ==
[2023-04-01 15:36] VITALS: BMI 38.9
== END ==
PROVIDERS: Family Provider Family Medicine; PCP Internal Medicine; Visit Provider Urology
DX: N32.81 Overactive bladder (principal); N40.1 Benign prostatic hyperplasia with lower urinary tract symptoms; R82.81 Pyuria; N52.01 Erectile dysfunction due to arterial insufficiency; Z85.51 Personal history of malignant neoplasm of bladder
CPT/HCPCS: 81002; 87086; 99214

== ENCOUNTER → 2023-08-05 11:29 | Outpatient (CLI) | payer MEDICARE, SELFPAY ==
[2023-04-01 15:36] VITALS: BMI 38.9
[2023-08-05 12:10] LABS: Alanine Aminotransferase 34 IU/L (<50); Albumin 4.5 g/dL (3.5-5.0); Albumin Globulin Ratio 1.3 (1.0-2.8); Alkaline Phosphatase 83 U/L (38-126); Aspartate Aminotransferase 35 IU/L (17-59); BUN Creatinine Ratio 28.6 (6-22); Bilirubin Total 1.7 mg/dL (0.2-1.3); Blood Urea Nitrogen 20 mg/dL (9-20); Carbon Dioxide 23 mmol/L (22-32); Chloride 104 mmol/L (98-107); Cholesterol 110 mg/dL (140-199); Estimated Glomerular Filt Rate > 60 mL/min (>60); Globulin 3.5 g/dL (1.7-4.1); Glucose 162 mg/dL (80-110); HDL Cholesterol 42 mg/dL (40-60); HEMOLYSIS 26 (0-50); LDL Cholesterol Calculated 42 mg/dL (<100); Potassium 4.1 mmol/L (3.4-5.1); Sodium 138 mmol/L (137-145); Triglycerides 130 mg/dL (35-150)
[2023-08-05 12:11] LABS: Hemoglobin A1C% w Est Avg Glu 6.4 % (4.0-6.0)
[2023-08-05 16:05] LABS: Creatinine Urine Random 127.5 mg/dL
[2023-08-05 16:10] LABS: Microalbumin Urine Random < 0.6 mg/dL (0-1.6)
== END ==
PROVIDERS: Family Provider Family Medicine; PCP Internal Medicine; Referring Provider Internal Medicine; Visit Provider Internal Medicine
DX: E11.9 Type 2 diabetes mellitus without complications (principal); I10 Essential (primary) hypertension; E78.2 Mixed hyperlipidemia
CPT/HCPCS: 36415; 80053; 80061; 82043; 82570; 83036

== ENCOUNTER → 2024-01-28 12:04 | Outpatient (CLI) | payer MEDICARE, SELFPAY ==
[2023-04-01 15:36] VITALS: BMI 38.9
[2024-01-28 12:59] LABS: Alanine Aminotransferase 31 IU/L (<50); Albumin 4.3 g/dL (3.5-5.0); Albumin Globulin Ratio 1.7 (1.0-2.8); Alkaline Phosphatase 97 U/L (38-126); Aspartate Aminotransferase 27 IU/L (17-59); BUN Creatinine Ratio 23.9 (6-22); Bilirubin Total 1.3 mg/dL (0.2-1.3); Blood Urea Nitrogen 16 mg/dL (9-20); Calcium 9.2 mg/dL (8.4-10.2); Carbon Dioxide 25 mmol/L (22-32); Chloride 104 mmol/L (98-107); Cholesterol 110 mg/dL (140-199); Estimated Glomerular Filt Rate > 60 mL/min (>60); Globulin 2.6 g/dL (1.7-4.1); Glucose 176 mg/dL (80-110); HDL Cholesterol 39 mg/dL (40-60); HEMOLYSIS < 15 (0-50); LDL Cholesterol Calculated 49 mg/dL (<100); Potassium 4.2 mmol/L (3.4-5.1); Sodium 137 mmol/L (137-145); Total Protein 6.9 g/dL (6.3-8.2); Triglycerides 109 mg/dL (35-150)
[2024-01-28 13:05] LABS: Hemoglobin A1C% w Est Avg Glu 6.3 % (4.0-6.0)
[2024-01-28 13:32] LABS: Appearance Urine UA CLEAR; Bilirubin Urine UA NEGATIVE (NEGATIVE); Color Urine UA YELLOW; Glucose Urine UA NEGATIVE (Negative); Ketones Urine UA NEGATIVE (NEGATIVE); Leukocyte Esterase Urine UA NEGATIVE (NEGATIVE); Nitrite Urine UA NEGATIVE (Negative); Occult Blood Urine UA NEGATIVE (Negative); Protein Urine UA NEGATIVE (Negative)
[2024-01-28 14:23] LABS: Bacteria Urine None Seen; Culture Indicated Urine Cult Not Indicated; RBC Urine None Seen (0-5/HPF); Squamous Epithelial Cell Urine 0-1 /HPF (0-5/HPF); Urine Volume 10mL (spun); WBC Urine None Seen (0-5/HPF)
== END ==
PROVIDERS: Urology; Family Provider Family Medicine; PCP Internal Medicine; Referring Provider Internal Medicine; Visit Provider Internal Medicine
DX: E11.9 Type 2 diabetes mellitus without complications (principal); I10 Essential (primary) hypertension; E78.2 Mixed hyperlipidemia; R33.9 Retention of urine, unspecified; R39.9 Unspecified symptoms and signs involving the genitourinary system
CPT/HCPCS: 36415; 80053; 80061; 81001; 83036; 87086

== ENCOUNTER → 2024-03-28 13:44 | Outpatient (CLI) | payer MEDICARE, SELFPAY ==
[2023-04-01 15:36] VITALS: BMI 38.9
== END ==
PROVIDERS: Family Provider Family Medicine; PCP Internal Medicine; Referring Provider Internal Medicine; Visit Provider Internal Medicine
DX: Z86.73 Personal history of transient ischemic attack (TIA), and cerebral infarction without residual deficits (principal)
CPT/HCPCS: 93246; 93248

== ENCOUNTER → 2024-04-01 11:51 | Outpatient (CLI) | payer MEDICARE, SELFPAY ==
[2023-04-01 15:36] VITALS: BMI 38.9
--- NOTE | 2024-04-01 11:52 | DI.US.S_ITS ---
PROCEDURE: US CAROTID DOPPLER BI INDICATIONS: TRANSIENT ISCHEMIC ATTACK TECHNIQUE: Color and pulse Doppler interrogation was performed of both carotid systems, with image documentation and velocity measurements. COMPARISON: None. FINDINGS: Stenosis calculations are based on SRU (Society of [employer]iologists in Ultras[employer]) criteria. Right side: Brachial blood pressure: 133/75 mm Hg. Common carotid artery peak systolic velocity: 79 cm/sec. Internal carotid artery peak systolic velocity: 65 cm/sec. Internal carotid artery end diastolic velocity: 13 cm/sec. External carotid artery peak systolic velocity: 112 cm/sec. ICA/CCA peak systolic ratio: 0.8 . Ibrahim scale imaging description: Moderate atherosclerotic disease at the bulb Percent internal carotid artery stenosis: Less than 50 percent . Vertebral artery: Flow direction is antegrade. Left side: Brachial blood pressure: 143/80 mm Hg. Common carotid artery peak systolic velocity: 73 cm/sec. Internal carotid artery peak systolic velocity: 80 cm/sec. Internal carotid artery end diastolic velocity: 21 cm/sec. External carotid artery peak systolic velocity: 80 cm/sec. ICA/CCA peak systolic ratio: 1.1 . Birahim scale imaging description: Mild atherosclerotic disease. Percent internal carotid artery stenosis: Less than 50 percent . Vertebral artery: Flow direction is antegrade. IMPRESSION: Less than 50 percent stenosis of the internal carotid arteries by peak systolic velocity criteria. Dictated by: Cruzito Garcia M.D. on 04/01/2024 at 16:21 Approved by: Cruzito Garcia M.D. on 04/01/2024 at 16:23
== END ==
PROVIDERS: Family Provider Family Medicine; PCP Internal Medicine; Referring Provider Internal Medicine; Visit Provider Internal Medicine
DX: Z86.73 Personal history of transient ischemic attack (TIA), and cerebral infarction without residual deficits (principal); I65.23 Occlusion and stenosis of bilateral carotid arteries
CPT/HCPCS: 93880

== ENCOUNTER → 2024-09-17 12:32 | Outpatient (CLI) | payer MEDICARE, SELFPAY ==
[2023-04-01 15:36] VITALS: BMI 38.9
[2024-09-17 13:27] LABS: Alanine Aminotransferase 40 IU/L (<50); Albumin 4.5 g/dL (3.5-5.0); Albumin Globulin Ratio 1.6 (1.0-2.8); Alkaline Phosphatase 89 U/L (38-126); Aspartate Aminotransferase 34 IU/L (17-59); BUN Creatinine Ratio 19.7 (6-22); Bilirubin Total 1.9 mg/dL (0.2-1.3); Blood Urea Nitrogen 14 mg/dL (9-20); Calcium 9.3 mg/dL (8.4-10.2); Carbon Dioxide 27 mmol/L (22-32); Chloride 100 mmol/L (98-107); Cholesterol 128 mg/dL (140-199); Estimated Glomerular Filt Rate > 60 mL/min (>60); Globulin 2.8 g/dL (1.7-4.1); Glucose 152 mg/dL (70-99); HDL Cholesterol 43 mg/dL (40-60); HEMOLYSIS 17 (0-50); LDL Cholesterol Calculated 57 mg/dL (<100); Potassium 4.6 mmol/L (3.4-5.1); Sodium 138 mmol/L (137-145); Total Protein 7.3 g/dL (6.3-8.2); Triglycerides 140 mg/dL (35-150)
[2024-09-17 13:29] LABS: Hemoglobin A1C% w Est Avg Glu 6.2 % (4.0-6.0)
== END ==
LOC: LAB 12:33
PROVIDERS: Family Provider Family Medicine; PCP Internal Medicine; Referring Provider Internal Medicine; Visit Provider Internal Medicine
DX: E11.9 Type 2 diabetes mellitus without complications (principal); E78.2 Mixed hyperlipidemia; I10 Essential (primary) hypertension
CPT/HCPCS: 36415; 80053; 80061; 83036

== ENCOUNTER → 2025-03-25 11:51 | Outpatient (CLI) | payer MEDICARE, SELFPAY ==
[2023-04-01 15:36] VITALS: BMI 38.9
[2025-03-25 12:39] LABS: Hemoglobin A1C% w Est Avg Glu 6.6 % (4.0-6.0)
[2025-03-25 13:11] LABS: Alanine Aminotransferase 28 IU/L (<50); Albumin 4.3 g/dL (3.5-5.0); Albumin Globulin Ratio 1.5 (1.0-2.8); Alkaline Phosphatase 91 U/L (38-126); Blood Urea Nitrogen 17 mg/dL (9-20); Calcium 9.1 mg/dL (8.4-10.2); Carbon Dioxide 24 mmol/L (22-32); Chloride 104 mmol/L (98-107); Cholesterol 107 mg/dL (140-199); Estimated Glomerular Filt Rate > 60 mL/min (>60); Globulin 2.9 g/dL (1.7-4.1); Glucose 151 mg/dL (70-99); HDL Cholesterol 46 mg/dL (40-60); HEMOLYSIS < 15 (0-50); Potassium 4.3 mmol/L (3.4-5.1); Sodium 138 mmol/L (137-145); Total Protein 7.2 g/dL (6.3-8.2); Triglycerides 96 mg/dL (35-150)
== END ==
PROVIDERS: PCP Internal Medicine; Referring Provider Internal Medicine; Visit Provider Internal Medicine
DX: E11.9 Type 2 diabetes mellitus without complications (principal); I10 Essential (primary) hypertension; E78.2 Mixed hyperlipidemia
CPT/HCPCS: 36415; 80053; 80061; 83036